=== PATIENT | female | born 1950 | race Caucasian/White ===

== ENCOUNTER 2021-09-27 12:43 | Outpatient (REF) | payer MEDICARE, SELFPAY ==
--- NOTE | ~2021-09-27 | MM_ITS ---
EXAMINATION: MM SCREENING DIGITAL BREAST TOMOSYNTHESIS, BILATERAL CLINICAL INFORMATION: Screening. Asymptomatic. The lifetime risk of breast cancer based on the Tyrer-Cuzick Model is 3%. COMPARISON: Mammography: 02/20/2019, 02/15/2018, 05/09/2016 TECHNIQUE: Digital breast tomosynthesis is performed in both the craniocaudal and mediolateral oblique views along with computer-aided detection (CAD). Synthesized 2D images are generated from the tomosynthesis. FINDINGS: There are scattered areas of fibroglandular density (ACR BI-RADS breast composition Category b). There are no significant masses, abnormal calcifications, or other abnormalities. There is no developing density or architectural abnormality. The axilla and skin contours are unremarkable. No significant changes. MM/MM tomosynthesis screening BI IMPRESSION: No mammographic evidence of malignancy. ASSESSMENT: BI-RADS 1: Negative RECOMMENDATION: Routine annual mammography screening. This patient's information was entered into a reminder system with a target due date for their next mammogram.
--- NOTE | ~2021-09-27 | MM_ITS ---
EXAMINATION: BONE DENSITOMETRY CLINICAL INDICATION: Menopause. COMPARISON: Baseline BD dated 04/22/2010. TECHNIQUE: Using a SCREEMO DXA System (software version: 13.1) manufactured by [employer], dual-energy x-ray absorptiometry was performed of the lumbar spine and left hip. The images are of good technical quality. Summary results are attached. FINDINGS: AP SPINE L1-L3 (excluding L4): The data of L1-L4 has been changed to exclude the L4 vertebral body, because degenerative changes at this level may cause overestimation of lumbar spine density. Current: BMD 0.864 g/cm2, Z-score -0.6, T-score -2.5, osteoporosis, 18.1% decrease from baseline (<5% change is not significant). Baseline: BMD 1.055 g/cm2. LEFT FEMUR, NECK: Current: BMD 0.725 g/cm2, Z-score -0.4, T-score -2.2, osteopenia. Baseline: BMD 0.957 g/cm2. LEFT FEMUR, TOTAL: Current: BMD 0.715 g/cm2, Z-score -0.7, T-score -2.3, osteopenia, 22.0% decrease from baseline (<5% change is not significant). Baseline: BMD 0.917 g/cm2. IDENTIFIED RISK FACTORS: Osteoporosis, renal, tobacco use (current smoker), low body weight, thiazide, menopause. HISTORY OF FRACTURE: None listed. MEDICATIONS: Calcium supplements or multivitamin, vitamin D. MM/XR DEXA axial skeleton IMPRESSION: 1. DIAGNOSIS: Osteoporosis based on the lowest T-score value of -2.5 in the lumbar spine applying World Health Organization criteria. 2. 10-YEAR FRACTURE RISK PREDICTION, FRAX: According to the guidelines, FRAX calculation should only be performed on patients in the osteopenia bone density category. Therefore, FRAX was not performed on this patient. 3. Treatment Recommendations: NOF guidelines recommend consideration for treatment in postmenopausal women and men age 50 and older presenting with the following: -A hip or vertebral (clinical or morphometric) fracture. -T-score less than or equal to -2.5 at the femoral neck or spine after appropriate evaluation to exclude secondary causes. -Low bone mass at the hip or spine and a 10-year fracture probability by FRAX of greater than or equal to 3% for hip fracture or greater than or equal to 20% for major osteoporotic fracture based on the [place] adapted WHO algorithm. 4. Other Recommendations: All treatment decisions require clinical judgment and consideration of individual patient factors, including patient preferences, comorbidities, previous drug use, risk factors not captured in the FRAX model (e.g. frailty, falls, vitamin D deficiency, increased bone turnover, interval significant decline in bone density) and possible under or overestimation of fracture risk by FRAX. Additional medical evaluation for secondary cause of low bone mineral density may be appropriate. FUTURE SCAN RECOMMENDATION: People with diagnosed cases of osteoporosis or at high risk for fracture should have regular bone mineral density tests. For patients eligible for Medicare, routine testing is allowed once every 2 years. The testing frequency can be increased to one year for patients who have rapidly progressing disease, those who are receiving or discontinuing medical therapy to restore bone mass, or have additional risk factors.
== END 2021-09-27 12:44 | disposition home or self-care (01) ==
LOC: HO.MAMMO 12:43
PROVIDERS: PCP Family Medicine; Visit Provider Family Medicine
DX: Z12.31 Encounter for screening mammogram for malignant neoplasm of breast (principal); Z13.820 Encounter for screening for osteoporosis; F17.200 Nicotine dependence, unspecified, uncomplicated; Z78.0 Asymptomatic menopausal state; Z79.899 Other long term (current) drug therapy
CPT/HCPCS: 77063; 77067; 77080

== ENCOUNTER 2023-06-06 12:18 | Outpatient (REF) | payer OTHER, SELFPAY ==
[2023-06-06 13:11] LABS: MANUAL DIFF FLAG NO
[2023-06-06 13:23] LABS: Basophils Absolute Auto 0.1 X10*3/uL (0.0-0.2); Basophils Percent Auto 1.1 % (0-2); Eosinophils Absolute Auto 0.1 X10*3/uL (0.0-0.4); Eosinophils Percent Auto 2.1 % (0-4); Hematocrit 37.9 % (37.0-47.0); Hemoglobin 12.4 g/dl (12.0-16.0); Imm Gran Abs Auto 0.01 X10*3/uL (0.00-0.03); Imm Gran Pct Auto 0.2 % (0.0-0.4); Lymphocytes Absolute Auto 2.6 X10*3/uL (1.2-4.9); Lymphocytes Percent Auto 40.5 % (20-40); Mean Corpuscular HGB Conc 32.7 g/dl (31.0-35.0); Mean Corpuscular Hemoglobin 30.4 pg (27.0-33.0); Mean Corpuscular Volume 92.9 fL (80.0-98.0); Mean Platelet Volume 9.7 fL (9.4-12.3); Monocytes Absolute Auto 0.4 X10*3/uL (0.1-1.2); Monocytes Percent Auto 6.6 % (2-11); Neutrophils Absolute Auto 3.1 x10*3/uL (2.0-8.3); Neutrophils Percent Auto 49.5 % (45-73); Platelet Count 502 X10*3/uL (160-400); Red Blood Count 4.08 X10*6/uL (4.20-5.50); Red Cell Distribution Width 14.6 % (11.0-16.0); White Blood Count 6.3 X10*3/uL (4.8-10.8)
[2023-06-06 13:33] LABS: Estimated Average Glucose 120 mg/dL; Hemoglobin A1c % 5.8 % (<6.0)
[2023-06-06 13:52] LABS: Cholesterol 289 mg/dL (<200); HDL Cholesterol 53 mg/dL (>40); LDL Cholesterol Calculated 216 mg/dL (<100); Triglycerides 102 mg/dL (<150)
[2023-06-06 14:00] LABS: Alanine Aminotransferase 7 U/L (0-31); Albumin Level 4.1 g/dL (3.5-5.0); Alkaline Phosphatase 67 U/L (39-117); Anion Gap 9 (12-20); Aspartate Amino Transferase 14 U/L (5-31); Bilirubin Total 0.2 mg/dL (0.0-1.0); Blood Urea Nitrogen 16 mg/dL (9-16); C Reactive Protein 0.35 mg/dL (< or = 0.50); Calcium 10.5 mg/dL (8.4-10.2); Carbon Dioxide 29 mmol/L (22-29); Chloride 107 mmol/L (96-108); Estimated Glomerular Filt Rate 59; Glucose Random 84 mg/dL (60-115); Potassium 4.1 mmol/L (3.3-5.1); Sodium 141 mmol/L (135-145)
[2023-06-06 14:03] LABS: Reflex LDLD? No
[2023-06-06 14:09] LABS: Erythrocyte Sedimentation Rate 11 MM/HR (0-20)
[2023-06-06 14:14] LABS: TSH reflex Free T4 0.33 uIU/mL (0.32-4.0)
== END 2023-06-06 12:19 | disposition home or self-care (01) ==
LOC: HO.HHCL 12:18
PROVIDERS: Visit Provider Family Medicine
DX: R63.4 Abnormal weight loss (principal); E78.5 Hyperlipidemia, unspecified; Z13.1 Encounter for screening for diabetes mellitus
CPT/HCPCS: 36415; 80053; 80061; 83036; 84443; 85025; 85652; 86140

== ENCOUNTER 2023-10-23 09:58 | Outpatient (REF) | payer OTHER, SELFPAY ==
[2023-10-23 11:33] LABS: MANUAL DIFF FLAG NO
[2023-10-23 11:41] LABS: Basophils Absolute Auto 0.1 X10*3/uL (0.0-0.2); Basophils Percent Auto 1.3 % (0-2); Eosinophils Absolute Auto 0.1 X10*3/uL (0.0-0.4); Eosinophils Percent Auto 2.6 % (0-4); Hematocrit 37.4 % (37.0-47.0); Hemoglobin 12.4 g/dl (12.0-16.0); Imm Gran Abs Auto 0.01 X10*3/uL (0.00-0.03); Imm Gran Pct Auto 0.2 % (0.0-0.4); Lymphocytes Absolute Auto 2.3 X10*3/uL (1.2-4.9); Lymphocytes Percent Auto 41.4 % (20-40); Mean Corpuscular HGB Conc 33.2 g/dl (31.0-35.0); Mean Corpuscular Volume 90.3 fL (80.0-98.0); Mean Platelet Volume 9.7 fL (9.4-12.3); Monocytes Absolute Auto 0.3 X10*3/uL (0.1-1.2); Monocytes Percent Auto 6.3 % (2-11); Neutrophils Absolute Auto 2.6 x10*3/uL (2.0-8.3); Neutrophils Percent Auto 48.2 % (45-73); Platelet Count 386 X10*3/uL (160-400); Red Blood Count 4.14 X10*6/uL (4.20-5.50); Red Cell Distribution Width 15.7 % (11.0-16.0); White Blood Count 5.4 X10*3/uL (4.8-10.8)
[2023-10-23 12:14] LABS: Alanine Aminotransferase 11 U/L (0-31); Albumin Level 4.2 g/dL (3.5-5.0); Alkaline Phosphatase 73 U/L (39-117); Anion Gap 12 (12-20); Aspartate Amino Transferase 15 U/L (5-31); Bilirubin Total 0.2 mg/dL (0.0-1.0); Blood Urea Nitrogen 14 mg/dL (9-16); C Reactive Protein 0.27 mg/dL (< or = 0.50); Calcium 10.5 mg/dL (8.4-10.2); Carbon Dioxide 28 mmol/L (22-29); Chloride 108 mmol/L (96-108); Cholesterol 190 mg/dL (<200); Estimated Glomerular Filt Rate > 60; Glucose Random 86 mg/dL (60-115); HDL Cholesterol 65 mg/dL (>40); LDL Cholesterol Calculated 113 mg/dL (<100); Potassium 3.9 mmol/L (3.3-5.1); Sodium 144 mmol/L (135-145); Triglycerides 62 mg/dL (<150)
[2023-10-23 12:26] LABS: Erythrocyte Sedimentation Rate 13 MM/HR (0-20)
[2023-10-23 12:32] LABS: TSH reflex Free T4 0.27 uIU/mL (0.32-4.0)
[2023-10-23 12:38] LABS: HBS Num1 0.23 mIU/mL (0-7.99); HBc Num1 0.08 S/CO (0.00-0.79); HBsAGNum1 0.32 S/CO (0.00-0.99); HIV AB/AG Nonreactive (Nonreactive); HIV Num 1 0.06 S/CO (0.00-0.99); Hepatitis B Core Antibody Nonreactive (Nonreactive); Hepatitis B Surface Antigen Negative (Negative); ~HepC Num1 0.06 S/CO (0.00-0.79); ~Hepatitis B Surface Antibody NONREACTIVE (Nonreactive); ~Hepatitis C Antibody Nonreactive (Nonreactive)
[2023-10-23 12:42] LABS: Syphilis Screen Nonreactive (Nonreactive)
[2023-10-23 12:51] LABS: Reflex LDLD? No
[2023-10-23 13:29] LABS: Free T4 (Free Thyroxine) 1.01 ng/dL (0.71-1.85)
[2023-10-24 08:26] LABS: Hepatitis A Antibody IgG Nonreactive (Nonreactive); ~Hepatitis A Antibody IgG 0.22 S/CO (0.00-0.99)
[2023-10-24 19:33] LABS: Anti Nuclear Antibody Screen NEGATIVE (NEGATIVE)
[2023-10-25 21:59] LABS: TS Negative Control Passed; TS Panel A 0; TS Panel B 1; TS Positive Control Passed; TSpotTB Negative (Negative)
[2023-10-26 13:43] LABS: Myeloperoxidase Antibody <1.0 AI; Proteinase 3 PR3 Antibodies <1.0 AI
== END 2023-10-23 09:59 | disposition home or self-care (01) ==
LOC: HO.HHCL 09:58
PROVIDERS: Visit Provider Family Medicine
DX: Z01.84 Encounter for antibody response examination (principal); Z11.1 Encounter for screening for respiratory tuberculosis; I10 Essential (primary) hypertension; R61 Generalized hyperhidrosis; D86.9 Sarcoidosis, unspecified; D75.839 Thrombocytosis, unspecified; E78.5 Hyperlipidemia, unspecified
CPT/HCPCS: 36415; 80053; 80061; 84439; 84443; 85025; 85652; 86021; 86038; 86140; 86481; 86704; 86706; 86708; 86780; 86803; 87340; 87389

== ENCOUNTER 2023-10-26 13:48 | Outpatient (REF) | payer OTHER, SELFPAY ==
--- NOTE | ~2023-10-26 | MM_ITS ---
EXAMINATION: BONE DENSITOMETRY CLINICAL INDICATION: Osteoporosis, on alendronate. COMPARISON: Previous BD dated 09/27/2021 and baseline BD dated 04/22/2010. TECHNIQUE: Using a Elevate DXA System (software version: 13.1) manufactured by [employer], dual-energy x-ray absorptiometry was performed of the lumbar spine and left hip. The images are of good technical quality. Summary results are attached. FINDINGS: LEFT FEMUR, NECK: Current: BMD 0.677 g/cm2, Z-score -0.8, T-score -2.6, osteoporosis. Prior: BMD 0.725 g/cm2. Baseline: BMD 0.957 g/cm2. LEFT FEMUR, TOTAL: Current: BMD 0.616 g/cm2, Z-score -1.5, T-score -3.1, osteoporosis, 13.8% decrease from previous, 32.8% decrease from baseline (<5% change is not significant). Prior: BMD 0.715 g/cm2. Baseline: BMD 0.917 g/cm2. AP SPINE L1-L4: Current: BMD 0.899 g/cm2, Z-score -0.6, T-score -2.3, osteopenia, 4.3% decrease from previous, 14.4% decrease from baseline (<5% change is not significant). Prior: BMD 0.939 g/cm2. Baseline: BMD 1.050 g/cm2. IDENTIFIED RISK FACTORS: Menopause, renal, thiazide, tobacco use (current smoker). HISTORY OF FRACTURE: None listed. MEDICATIONS: Calcium or multivitamin. Vitamin D. MM/XR DEXA axial skeleton IMPRESSION: 1. DIAGNOSIS: Osteoporosis based on the lowest T-score value of -3.1 in the total femur applying World Health Organization criteria. 2. 10-YEAR FRACTURE RISK PREDICTION, FRAX: According to the guidelines, FRAX calculation should only be performed on patients in the osteopenia bone density category. Therefore, FRAX was not performed on this patient. 3. Treatment Recommendations: NOF guidelines recommend consideration for treatment in postmenopausal women and men age 50 and older presenting with the following: -A hip or vertebral (clinical or morphometric) fracture. -T-score less than or equal to -2.5 at the femoral neck or spine after appropriate evaluation to exclude secondary causes. -Low bone mass at the hip or spine and a 10-year fracture probability by FRAX of greater than or equal to 3% for hip fracture or greater than or equal to 20% for major osteoporotic fracture based on the [place] adapted WHO algorithm. 4. Other Recommendations: All treatment decisions require clinical judgment and consideration of individual patient factors, including patient preferences, comorbidities, previous drug use, risk factors not captured in the FRAX model (e.g. frailty, falls, vitamin D deficiency, increased bone turnover, interval significant decline in bone density) and possible under or overestimation of fracture risk by FRAX. Additional medical evaluation for secondary cause of low bone mineral density may be appropriate. FUTURE SCAN RECOMMENDATION: People with diagnosed cases of osteoporosis or at high risk for fracture should have regular bone mineral density tests. For patients eligible for Medicare, routine testing is allowed once every 2 years. The testing frequency can be increased to one year for patients who have rapidly progressing disease, those who are receiving or discontinuing medical therapy to restore bone mass, or have additional risk factors.
== END 2023-10-26 13:49 | disposition home or self-care (01) ==
LOC: HO.MAMMO 13:48
PROVIDERS: PCP Family Medicine; Visit Provider Family Medicine
DX: Z13.820 Encounter for screening for osteoporosis (principal); M81.0 Age-related osteoporosis without current pathological fracture; Z78.0 Asymptomatic menopausal state
CPT/HCPCS: 77080

== ENCOUNTER 2023-11-02 14:47 | Outpatient (REF) | payer OTHER, SELFPAY | END 2023-11-02 14:48 | disposition home or self-care (01) | LOC: HO.MAMMO 14:47 | PROVIDERS: PCP Family Medicine; Visit Provider Family Medicine | DX: Z12.31 Encounter for screening mammogram for malignant neoplasm of breast (principal) | CPT/HCPCS: 77063; 77067 ==

== ENCOUNTER → 2023-11-02 15:15 | Outpatient (BNV) | payer OTHER, SELFPAY | PROVIDERS: PCP Family Medicine; Visit Provider Radiology Diagnostic Radiology | DX: Z12.31 Encounter for screening mammogram for malignant neoplasm of breast (principal) | CPT/HCPCS: 77063; 77067 ==

== ENCOUNTER 2023-12-14 08:49 | Outpatient (AMB) | payer OTHER, SELFPAY ==
--- NOTE | 2023-12-14 08:57 | MHC.OFFVIS ---
Vital Signs 12/14/23 08:59 Height 5 ft 5 in Weight 140 lb 3.424 oz BMI 23.3 BP 130/70 Blood Pressure Location Rt brachial Position Sitting Pulse 80 Pulse Source Pulse Oximeter Pulse Oximetry (%) 99 Oxygen Delivery Method Room Air Intake Visit Reasons: Sarcoidosis Intake Note: New patient, externally referred by Dr. Butler at [facility], presents today for evaluation of Sarcoidosis. Inspector Line Required: No Accompanied by: Self / Same As Patient Allergies Penicillins Allergy (Severe, Verified 12/14/23 09:02) SWELLING strawberry [[place]] Allergy (Intermediate, Verified 12/14/23 09:02) HIVES HPI Comments Details: Ms. Mcduffie 73-year-old female, was referred by PCP for evaluation for Sarcoidosis due to mention of a remote history. Patient denies ever seeing a Plant And Maintenance Technician or knowingly being treated for sarcoidosis of the lungs. --had recent CT Scan last month (not available for my review; per referral notes 09/2022 CT scan did not show hilar Lymphadenopathy. --has COPD, exacerbation resolve with prednisone; last seen Practice Performance Manager 09/2022, needs an appointment; smoker since 14 years old, trying to quit - 3 months now --no pleuritis or pericarditis --rash to left knee, on back - thinks she is getting eczema; uses cream and is resolving --join pain - gets knee joint injections, Ortho says bone on bone ; last for 3 months, difficulty with stairs, uses a rolling walker --former crack/cocaine user --denies drop foot, skin lumps, --denies other common symptoms of Sarcoidosis Lung or chest symptoms:?Chest pain, dry cough, and coughing up blood Skin symptoms:?Raised red bumps, rashes, lupus pernio, or erythema nodosum, which are painful red lumps on the front of the legs Eye symptoms:?Eye irritation, dryness, blurred vision, light sensitivity, inflammation, pain, or burning General symptoms:?Fatigue, fever, weight loss, swollen lymph nodes, night sweats, depression, or a feeling of illness or discomfort Nervous system symptoms:?Headache, seizures, dizziness, numbness, tingling, or heart palpitations --has heart burn, denies abdominal pain and cramping and diarrhea - due for colonoscopy. --livedo reticualris to knees, mid to lower back centrally --does not appear sick on observation - no need for Amyloid A, KL-6, soluble interleukin-2 receptor (Teri-2R) --PMH asthma, COPD, HTN, CKD, Knee OA and Osteoporosis PFSH Medical History (Updated 01/03/24 @ 15:21 by Arleen Ware [facility]) Sensorineural hearing loss, bilateral Leg cramp Paresthesia of skin Other postherpetic nervous system involvement Heavy smoker (more than 20 cigarettes per day) Lung nodules Osteoporosis Allergic rhinitis, unspecified Nicotine dependence, unspecified, uncomplicated Vitamin D deficiency, unspecified Unspecified mood [affective] disorder Epilepsy, unspecified, not intractable, without status epilepticus Osteoarthritis of knee, unspecified Acute migraine Prediabetes Essential (primary) hypertension Dyslipidemia Chronic kidney disease Asthma with COPD Hx of sarcoidosis COPD (chronic obstructive pulmonary disease) Surgical History (Updated 12/14/23 @ 09:03 by Ekta Carty MA) History of section Family History (Updated 12/14/23 @ 09:04 by Ekta Carty MA) Mother Heart disease Maternal Uncle Heart disease Sister Diabetes mellitus, type II Social History (Updated 12/14/23 @ 09:05 by Ekta Carty MA) Alcohol intake: former Patient Tobacco Use Status: Former Tobacco user Substance Use Type: Marijuana Review of Systems Const All systems reviewed & are unremarkable except as noted in HPI and below Physical Exam Vital Signs: Last Vital Signs Pulse 80 12/14/23 08:59 BP 130/70 12/14/23 08:59 Pulse Ox 99 12/14/23 08:59 Oxygen Delivery Method Room Air 12/14/23 08:59 BMI result Body Mass Index 23.3 Vital signs reviewed. Constitutional: Non-toxic appearing. No acute distress. Well-developed and well-nourished. HEENT: Normocephalic and atraumatic. External auditory canals without erythema or edema bilaterally. Dry mucous membranes. Skin: Warm and dry. No rashes or lesions noted. Neck: Full and painless range of motion. No cervical lymphadenopathy. Cardio: Regular rate and rhythm. No murmurs, gallops, or rubs. No lower extremity edema. No JVD. Pulmonary: No respiratory distress. No accessory muscle usage. decreased in the based Gastrointestinal: Soft, nontender, and nondistended in all 4 quadrants. Normoactive bowel sounds in all 4 quadrants. Genitourinary: No CVA tenderness. Musculoskeletal: Normal range of motion in joints throughout the body. No deformity or other signs of injury. Uses a walker Neuro: Alert and oriented x4. Cranial nerves 2-12 grossly intact. No focal deficits appreciated. Results Reviewed Results Reviewed: Per for referral 1. 09/27/2022 CT scan shows Lung-RADS 2 stable nodules 2. Post herpetic neuralgia gabapentin 600 mg at bedtime 3 labs 10/23/2023 sed rate 13, CRP 0.27, CBC grossly normal, lipids grossly normal, CMP grossly normal-calcium 10.5 up, creatinine 0.83, TSH 0.27 down, Did not see results for MADAI and ANCA Assessment & Plan Assessment & Plan (1) Hx of sarcoidosis: Code(s): Z86.2 - Personal history of diseases of the blood and blood-forming organs and certain disorders involving the immune mechanism Category: Medical (2) COPD (chronic obstructive pulmonary disease): Code(s): J44.9 - Chronic obstructive pulmonary disease, unspecified Category: Medical Qualifiers: COPD type: unspecified COPD Qualified Code(s): J44.9 - Chronic obstructive pulmonary disease, unspecified (3) Heavy smoker (more than 20 cigarettes per day): Code(s): F17.210 - Nicotine dependence, cigarettes, uncomplicated Category: Social Hx (4) Vitamin D deficiency, unspecified: Code(s): E55.9 - Vitamin D deficiency, unspecified Category: Medical Plan #Presumed History of Sarcoid: The patient shares that she was told she had sarcoidosis years ago but she does not remember being treated for it. On PE I did not see a clinical presentation for sarcoidosis and she denies much of the symptoms as outlined in the HPI. She does have longstanding COPD and asthma . She also has nodules, LUNG-RAD-2, monitored annually. She does not clinically present as having sarcoid. There are respiratory challenges that she will have that is likely linked to her COPD and asthma so I suspect episodes of shortness of breath, wheezing is attributed to that. Per referral, the most recent CT scan (09/2022) did not identify hilar lymphadenopathy commonly seen in the context of lung sarcoid. The patient denies any increased respiratory burden that is outside of her regular COPD exacerbations. She has not seen a electronics detail draftsperson since 2023 and is scheduled to have an updated visit. Per labs on referral notes her calcium is mildly elevated at 10.5: While elevated calcium can be seen in the context of sarcoid, I doubt this is the reason. I will obtain room panel to include Gregorio and vitamin-D levels, for further evaluation. She also has a history of vitamin-D deficiency which usually the opposite is seen in sarcoid. Follow-up as needed if lab work is remarkable I spent 35 minutes reviewing history, evaluating patient and documenting Orders: Orders Comprehensive Met. Panel 12/18/23 J44.9 - Chronic obstructive pulmonary disease, unspecified, Z86.2 - Personal history of diseases of the blood and blood-forming organs and certain disorders involving the immune mechanism C Reactive Protein 12/18/23 J44.9 - Chronic obstructive pulmonary disease, unspecified, Z86.2 - Personal history of diseases of the blood and blood-forming organs and certain disorders involving the immune mechanism Immunoglobulins,IgG IgA IgM 12/18/23 J44.9 - Chronic obstructive pulmonary disease, unspecified, Z86.2 - Personal history of diseases of the blood and blood-forming organs and certain disorders involving the immune mechanism Immunofixation Pnl, Serum 12/18/23 J44.9 - Chronic obstructive pulmonary disease, unspecified, Z86.2 - Personal history of diseases of the blood and blood-forming organs and certain disorders involving the immune mechanism Anti Extractable Nuclear Ag 12/18/23 J44.9 - Chronic obstructive pulmonary disease, unspecified, Z86.2 - Personal history of diseases of the blood and blood-forming organs and certain disorders involving the immune mechanism Lysozyme, Serum 12/18/23 J44.9 - Chronic obstructive pulmonary disease, unspecified, Z86.2 - Personal history of diseases of the blood and blood-forming organs and certain disorders involving the immune mechanism Angiotensin Converting Enzyme 12/18/23 J44.9 - Chronic obstructive pulmonary disease, unspecified, Z86.2 - Personal history of diseases of the blood and blood-forming organs and certain disorders involving the immune mechanism Complete Blood Count Auto Diff 12/18/23 J44.9 - Chronic obstructive pulmonary disease, unspecified, Z86.2 - Personal history of diseases of the blood and blood-forming organs and certain disorders involving the immune mechanism Erythrocyte Sedimentation Rate 12/18/23 J44.9 - Chronic obstructive pulmonary disease, unspecified, Z86.2 - Personal history of diseases of the blood and blood-forming organs and certain disorders involving the immune mechanism Vitamin D 25-OH (D2 and D3) 12/18/23 J44.9 - Chronic obstructive pulmonary disease, unspecified, Z86.2 - Personal history of diseases of the blood and blood-forming organs and certain disorders involving the immune mechanism Protein Electrophoresis, Serum 12/18/23 J44.9 - Chronic obstructive pulmonary disease, unspecified, Z86.2 - Personal history of diseases of the blood and blood-forming organs and certain disorders involving the immune mechanism Sjogren's Antibodies 12/18/23 J44.9 - Chronic obstructive pulmonary disease, unspecified, Z86.2 - Personal history of diseases of the blood and blood-forming organs and certain disorders involving the immune mechanism T Spot TB 12/18/23 J44.9 - Chronic obstructive pulmonary disease, unspecified, Z86.2 - Personal history of diseases of the blood and blood-forming organs and certain disorders involving the immune mechanism Coding Level of Care Code New Pt Level 4 (40579) Diagnoses Hx of sarcoidosis Z86.2 Chronic obstructive pulmonary disease, unspecified COPD type J44.9 COPD type: unspecified COPD Heavy smoker (more than 20 cigarettes per day) F17.210 Vitamin D deficiency, unspecified E55.9
[2023-12-14 08:59] VITALS: BP 130/70; PULSE 80; O2SAT 99; BMI 23.3
== END 2023-12-14 09:54 | disposition home or self-care (01) ==
PROVIDERS: PCP Family Medicine; Visit Provider Nurse Practitioner Family
DX: Z86.2 Personal history of diseases of the blood and blood-forming organs and certain disorders involving the immune mechanism (principal); J44.9 Chronic obstructive pulmonary disease, unspecified; F17.210 Nicotine dependence, cigarettes, uncomplicated; E55.9 Vitamin D deficiency, unspecified
CPT/HCPCS: 99204

== ENCOUNTER → 2023-12-14 08:49 | Outpatient (BNVA) | payer OTHER, SELFPAY | PROVIDERS: PCP Family Medicine; Visit Provider Nurse Practitioner Family | DX: J44.9 Chronic obstructive pulmonary disease, unspecified (principal); E55.9 Vitamin D deficiency, unspecified; F17.210 Nicotine dependence, cigarettes, uncomplicated; Z86.2 Personal history of diseases of the blood and blood-forming organs and certain disorders involving the immune mechanism | CPT/HCPCS: 99202 ==

== ENCOUNTER 2023-12-18 10:34 | Outpatient (REF) | payer OTHER, SELFPAY ==
[2023-12-18 12:11] LABS: MANUAL DIFF FLAG NO
[2023-12-18 12:22] LABS: Basophils Percent Auto 0.5 % (0-2); Eosinophils Absolute Auto 0.2 X10*3/uL (0.0-0.4); Hematocrit 36.9 % (37.0-47.0); Hemoglobin 12.7 g/dl (12.0-16.0); Imm Gran Abs Auto 0.04 X10*3/uL (0.00-0.03); Imm Gran Pct Auto 0.5 % (0.0-0.4); Lymphocytes Absolute Auto 2.9 X10*3/uL (1.2-4.9); Lymphocytes Percent Auto 33.7 % (20-40); Mean Corpuscular HGB Conc 34.4 g/dl (31.0-35.0); Mean Corpuscular Hemoglobin 30.4 pg (27.0-33.0); Mean Corpuscular Volume 88.3 fL (80.0-98.0); Mean Platelet Volume 9.8 fL (9.4-12.3); Monocytes Absolute Auto 0.6 X10*3/uL (0.1-1.2); Monocytes Percent Auto 6.5 % (2-11); Neutrophils Absolute Auto 4.9 x10*3/uL (2.0-8.3); Neutrophils Percent Auto 56.8 % (45-73); Platelet Count 344 X10*3/uL (160-400); Red Blood Count 4.18 X10*6/uL (4.20-5.50); Red Cell Distribution Width 14.2 % (11.0-16.0); White Blood Count 8.5 X10*3/uL (4.8-10.8)
[2023-12-18 12:57] LABS: Erythrocyte Sedimentation Rate 10 MM/HR (0-20)
[2023-12-18 13:05] LABS: Alanine Aminotransferase 10 U/L (0-31); Alkaline Phosphatase 62 U/L (39-117); Anion Gap 12 (12-20); Aspartate Amino Transferase 12 U/L (5-31); Bilirubin Total 0.5 mg/dL (0.0-1.0); Blood Urea Nitrogen 18 mg/dL (9-16); C Reactive Protein 0.82 mg/dL (< or = 0.50); Calcium 9.9 mg/dL (8.4-10.2); Carbon Dioxide 27 mmol/L (22-29); Chloride 107 mmol/L (96-108); Estimated Glomerular Filt Rate 50; Glucose Random 90 mg/dL (60-115); Potassium 3.5 mmol/L (3.3-5.1); Sodium 142 mmol/L (135-145); Total Protein 6.5 g/dL (6.5-8.0)
[2023-12-19 20:09] LABS: Antibody to SS-A Antigen <1.0 NEG AI (<1.0 NEG); Antibody to SS-B Antigen <1.0 NEG AI (<1.0 NEG); SM/Ribonucleoprotein Ab <1.0 NEG AI (<1.0 NEG); Smith Protein <1.0 NEG AI (<1.0 NEG)
[2023-12-20 20:03] LABS: Prot Elec - Albumin 4.2 g/dL (3.8-4.8); Prot Elec - Alpha1 0.3 g/dL (0.2-0.3); Prot Elec - Alpha2 0.7 g/dL (0.5-0.9); Prot Elec - Beta 1 0.4 g/dL (0.4-0.6); Prot Elec - Beta 2 0.3 g/dL (0.2-0.5); Prot Elec - Gamma 0.6 g/dL (0.8-1.7); Prot Elec - Total Protein 6.5 g/dL (6.1-8.1)
[2023-12-20 22:33] LABS: TS Negative Control Passed; TS Panel A 1; TS Panel B 0; TS Positive Control Passed; TSpotTB Negative (Negative)
[2023-12-21 10:29] LABS: IgA 247 mg/dL (70-320); IgG 652 mg/dL (600-1540); IgM 87 mg/dL (50-300)
[2023-12-23 16:48] LABS: Vitamin D 25-OH, D2 <4 ng/mL; Vitamin D 25-OH, D3 53 ng/mL; Vitamin D 25-OH, Total 53 ng/mL (30-100)
[2023-12-25 06:24] LABS: Angiotensin Converting Enzyme 11 U/L (9-67)
[2023-12-25 20:24] LABS: Lysozyme, Serum 13.1 mcg/mL (5.0-11.0)
== END 2023-12-18 10:35 | disposition home or self-care (01) ==
LOC: HO.HHCL 10:34
PROVIDERS: Visit Provider Nurse Practitioner Family
DX: J44.9 Chronic obstructive pulmonary disease, unspecified (principal); Z86.2 Personal history of diseases of the blood and blood-forming organs and certain disorders involving the immune mechanism
CPT/HCPCS: 36415; 80053; 82164; 82306; 82784; 84165; 85025; 85549; 85652; 86140; 86235; 86334; 86481

== ENCOUNTER 2024-08-18 12:36 | Outpatient (REF) | payer OTHER, SELFPAY ==
--- OUTSIDE RECORDS SUMMARY | 2024-08-18 13:55 | XMS_ITS | Encounter Summary ---
Author Organization [employer] Address [address] [place] [address] Care Team Providers Care Simulation Educator Name Role Phone Jackie Butler MD Primary Care Provider [phone] Encounter Details Date Type Department Care Team (Latest Contact Info) Description 08/18/2024 11:15 AM EST Office Visit [facility] [address] [place] [address] [phone] Jackie Butler MD [address], [place] [phone] Asthma with COPD (CMS/HCC) (Primary Dx); Lung nodules; Primary hypertension; Osteoporosis without current pathological fracture, unspecified osteoporosis type; Sarcoidosis; Tobacco dependence; Smoking greater than 20 pack years; Sensorineural hearing loss (SNHL) of both ears; Moderate major depression (CMS/HCC); Allergic rhinitis, unspecified seasonality, unspecified trigger; Primary osteoarthritis of both knees; Prediabetes; Dyslipidemia; Encounter for immunization Social History Tobacco Use Types Packs/Day Years Used Date Smoking Tobacco: Every Day Cigarettes Passive Smoke Exposure: Current Smokeless Tobacco: Never Alcohol Use Standard Drinks/Week Comments Never 0 (1 standard drink = 0.6 oz pur e alcohol) Alcohol Answer Date Recorded Frequency of Alcohol Consumption Not on file 01/14/2024 Average Number of Drinks Not on file 024 Frequency of Binge Drinking Not on file 07/2023 Score 0 01/14/2024 Depression Answer Date Recorded Patient Health Questionnaire-9 Score 8 08/18/2024 Patient Health Questionnaire-9 Score 8 08/18/2024 Last PHQ-9: Questionnaire Data Not on file 0 08/18/2024 Housing Stability Answer Date Recorded What is your housing situation today? I have manjinder payne 08/18/[address] you li ve. Do you have problems with any of the following? None of the above 08/18/2024 Food Insecurity Answer Date Recorded Within the past 12 months, y ou worried that your food would run out before you got money to buy more: Never True 08/18/2024 Within the past 12 months,th e food you bought just didn't last and you didn't have enough money to get more: Never True 09/2024 Transportation Answer Date Recorded In the past 12 months, has l ack of transportation kept you from medical appts, meetings, work or from getting things needed for daily living? No 08/18/2024 Utilities Answer Date Recorded In the past 12 months, has t he electric, gas, oil or water company threatened to shut off services in your home? No 08/18/2024 Depression Answer Date Recorded Patient Health Questionnaire-2 Score 2 08/18/2024 Internet Access Answer Date Recorded Internet Access Q1 Yes 08/18/2024 Internet Access Q2 Not on file 08/18/2024 Comments Unknown Sex and Gender Information Value Date Recorded Sex Assigned at Female 05/15/2022 10:17 AM EDT Legal Sex Female 10:17 AM EDT Gender Identity Female 05/15/2022 10:17 AM EDT Sexual Orientation Straight 05/15/2022 10 :17 AM EDT documented as of this encounter Last Filed Vital Signs Vital Sign Reading Time Taken Comments Blood Pressure 105/64 08/18/2024 11:38 AM EST Pulse 93 08/18/2024 11:38 AM EST Temperature 36.2 ??C (97.1 ??F) 08/18/2024 11:[address] Respiratory Rate 15 08/18/2024 11:38 AM EST Oxygen Saturation 98% 08/18/2024 11:38 AM EST Inhaled Oxygen Concentration - - Weight 59.6 kg (131 lb 6.4 oz) 08/18/2024 11:38 AM EST Height - - Body Mass Index 22.43 04/14/2024 11:15 AM EDT documented in this encounter Miscellaneous Notes * Assessment & Plan Note - Antolin Carmona - 08/18/2024 12:18 PM ESTAssociated Problem(s): Tobacco dependence Continue working on smoking cessation Continue lung cancer screening * Assessment & Plan Note - Antolin Carmona - 08/18/2024 12:17 PM ESTAssociated Problem(s): Smoking greater than 20 pack years - pt reports being three weeks smoke free - low dose lung cancer screening CT in November 2023 Lung RADS 2 at [facility] - repeat CT in 1 year * Assessment & Plan Note - Antolin Carmona - 08/18/2024 12:17 PM ESTAssociated Problem(s): Sensorineural hearing loss (SNHL) of both ears - seen by case management manager and recommended to use hearing aids * Assessment & Plan Note - Antolin Carmona - 08/18/2024 12:17 PM ESTAssociated Problem(s): Moderate major depression (CMS/HCC) - Hx Diagnosis of bipolar disorder. - Previous medication: Depakote, but patient discontinued (unclear when it was started and if it was for Hx seizure disorder, no seizure > 15 years -previously seen by [facility] clinician -Patient seeking in-person counseling * Assessment & Plan Note - Antolin Carmona - 08/18/2024 12:16 PM ESTAssociated Problem(s): Dyslipidemia Current medication: Rosuvastatin 40 mg at bedtime Last lipid profile: 06/06/23 TC 289; TG 102; HDL 52; LDL 216 Encourage her to improve adherence to medication and lifestyle modification May need to change to Atorvastatin if her renal function declines. According to ACC/AHA guideline, high-intensity statin therapy is recommended. * Assessment & Plan Note - Antolin Carmona - 08/18/2024 12:16 PM ESTAssociated Problem(s): Allergic rhinitis -previously followed by Dr. Vaughn and Dr. Tatum -pt requests a referral to new ENT and recovery specialist * Assessment & Plan Note - Antolin Carmona - 08/18/2024 12:16 PM ESTAssociated Problem(s): Sarcoidosis - patient had not had an appointment with specialist for a while - recently seen by Dr. Xiao, [facility], in November 2023 - she had lung CT as a part of lung cancer screening which showed no mediastinal lymphadenopathy and stable nodule - patient has reticularis livedo and lately feeling sick, more frequent infection and had Shingles. * Assessment & Plan Note - Antolin Carmona - 08/18/2024 12:16 PM ESTAssociated Problem(s): Prediabetes -06/06/23 A1C 5.8% * Assessment & Plan Note - Antolin Carmona - 08/18/2024 12:15 PM ESTAssociated Problem(s): Osteoporosis -09/27/21 DEXA The lowest T-score -2.5 in lumbar spine -10/26/23 DEXA The lowest T-score -3.1 in femur -Risk factors: smoking, occasional use of steroid for asthma and knee OA -Continue alendronate, started in 2021 -Continue weight-bearing exercise -Repeat DEXA in 1-2 years * Assessment & Plan Note - Antolin Carmona - 08/18/2024 12:15 PM ESTAssociated Problem(s): Osteoarthritis of knee Seen by [facility] provider, last seen in December 2020 s/p steroid injection. recommended to have TKA Follow up as scheduledSeen by [facility] provider, last seen in December 2020 s/p steroid injection. recommended to have TKA Follow up as scheduled * Assessment & Plan Note - Antolin Carmona - 08/18/2024 12:15 PM ESTAssociated Problem(s): Hypertension -Goal BP < 150/90 per JNC-8, < 130/80 per ACC/AHA guideline -BP not at goal today -Continue working on lifestyle modification and medication adherence. -Continue lisinopril 20 mg daily. -Continue HCTZ 25 mg daily, advised to take half pill if systolic BP is less than 110. Due to her age, consider discontinuing in near future and titrate up ACEI. -consider a combination drug for decreasing pill-burden -Return for BP check with our nurse in 2-3 wks. If persistently elevated, will increase lisinopril to 30 mg daily and refer her to [facility]. * Assessment & Plan Note - Antolin Carmona - 08/18/2024 12:15 PM ESTAssociated Problem(s): Lung nodules - CT Scan on 09/27/22 showed LUNG-RADS 2; nodules seemed stable - CT scan on 11/14/23 LUNG - RADS 2, mild emphysema - Continue working on smoking cessation - recommended repeat annually * Assessment & Plan Note - Antolin Carmona - 08/18/2024 12:14 PM ESTAssociated Problem(s): Asthma with COPD ([facility]) - Claim Attorney: Dr. Polanco, seen on 09/27/22 - Maintenance: Previously fluticasone - salmeterol / 500- 50 mcg one puff bid; montelukast 10 mg atbedtime - Rescue: Albuterol HFA prn - Last exacerbation, Today, Apr 2023. Outpatient treatment with prednisone burst 5 days and azithromycin. - Last CT on 11/14/23 Lung RADS 2. Mild emphysema. ; stable nodules; recommended repeat CT scan in 1-year - continue working on smoking cessation - Follow up in 3 mo or sooner prn documented in this encounter Plan of Treatment Scheduled Orders Name Type Priority Associated Diagnoses Orde r Schedule TSH with Reflex to Free T4 Lab Routine Primary hypertension Expected: 08/18/2024 (Approximate), Expires: 08/18/2025 Hemoglobin A1c Lab Routine Prediabetes Expected: 08/18/2024 (Approximate), Expires: 08/18/2025 Comprehensive Metabolic Panel Lab Routine Primary hypertension Expected: 08/18/2024 (Approximate), Expires: 08/18/2025 Lipid Panel with Reflex to Direct LDL Lab Routine Dyslipidemia Expected: 08/18/2024 (Approximate), Expires: 08/18/2025 Albumin, Random Urine W/Creatinine Lab Routine Primary hypertension Expected: 08/18/2024 (Approximate), Expires: 08/18/2025 documented as of this encounter Visit Diagnoses Diagnosis Asthma with COPD (CMS/HCC)- Primary Lung nodules Other diseases of lung, not elsewhere classified Primary hypertension Unspecified essential hypertension Osteoporosis without current pathological fracture, unspecified osteoporosis type Sarcoidosis Tobacco dependence Tobacco use disorder Smoking greater than 20 pack years Sensorineural hearing loss (SNHL) of both ears Moderate major depression (CMS/HCC) Major depressive disorder, single episode, moderate Allergic rhinitis, unspecified seasonality, unspecified trigger Primary osteoarthritis of both knees Prediabetes Other abnormal glucose Dyslipidemia Other and unspecified hyperlipidemia Encounter for immunization documented in this encounter Additional Health Concerns Assessment Noted Time PHQ-9 Depression Total Score: 8 08/18/19 25 11:36 AM EST documented as of this encounter Care Teams Simulation Educator Relationship Specialty Start Date End Date Jackie Butler MD [address] [place] [id number] PCP - General Family Medicine 07/16/18 documented as of this encounter
--- OUTSIDE RECORDS SUMMARY | 2024-08-18 13:55 | XMS_ITS | Clinical Summary ---
Author Organization [employer] Address [address] [facility] [address] [place] [address] Care Team Providers Care System Support Technician Name Role Phone Jackie Butler MD Primary Care Provider [phone] Allergies Active Allergy Reactions Criticality Noted Date Comments Penicillins Hives 09/21/2010 [place] Extract 09/28/2015 Medications * This document contains information received from the source organization and may not represent a complete record from that organization. Fluticasone-Yaniv meterol (Wixela Inhub) 500-50 MCG/ACT aerosol powder 08/30/19 22 Active gabapentin (Neurontin) 300 MG capsule Take 1 capsule by mouth at bedtime, may increase to bid if pain relief is inadequate 60 capsule 3 01/26/20 23 Active albuterol 108 (90 Base) MCG/ACT inhaler Inhale 2 puffs every 4 (four) hours if needed for wheezing or shortness of breath. Maximum 8 puffs per day 18 g 3 06/06/20 23 Active rosuvastatin (Crestor) 40 MG tabletIndicatio ns:Cardiovascul ar event risk Take 1 tablet by mouth daily at bedtime 90 tablet 3 08/06/19 24 Active hydroCHLOROthia zide (HYDRODiuril) 25 MG tabletIndicatio ns:Essential hypertension TAKE 1 TABLET BY MOUTH DAILY 90 tablet 3 08/13/19 24 Active cholecalciferol (D3-1000) 25 MCG (1000 UT) capsuleIndicati ons:Vitamin D deficiency TAKE 1 CAPSULE BY MOUTH DAILY 90 capsule 3 08/13/19 24 Active lisinopril 20 MG tabletIndicatio ns:Essential hypertension TAKE 1 TABLET BY MOUTH DAILY 90 tablet 3 08/13/19 24 Active aspirin (Aspirin Low Dose) 81 MG EC tabletIndicatio ns:Cardiovascul ar event risk TAKE 1 TABLET BY MOUTH DAILY 90 tablet 3 08/13/19 24 Active montelukast (Singulair) 10 MG tabletIndicatio ns:Asthma with COPD (CMS/HCC) TAKE 1 TABLET BY MOUTH EVERY EVENING 90 tablet 3 08/13/19 24 Active triamcinolone (Kenalog) 0.1 % ointment Apply to affected area thin layer once or twice daily. Apply immediately after shower / bath. 80 g 3 10/23/19 24 Active loratadine (Claritin) 10 MG tablet TAKE 1 TABLET BY MOUTH DAILY 90 tablet 1 11/21/19 24 Active alendronate (Fosamax) 70 MG tabletIndicatio ns:Osteoporosis without current pathological fracture, unspecified osteoporosis type TAKE 1 TABLET BY MOUTH EVERY WEEK IN THE MORNING AT LEAST 30 MINUTES BEFORE FIRST FOOD, BEVERAGE, OR MED OF THE DAY 12 tablet 1 01/23/20 24 Active omeprazole (PriLOSEC) [address] capsuleIndicati ons:Gastroesoph ageal reflux disease, unspecified whether esophagitis present TAKE 1 CAPSULE BY MOUTH DAILY BEFORE A MEAL 90 capsule 1 03/28/20 24 Active azithromycin (Zithromax) 250 MG tablet Take 2 tablets by mouth on day 1, 1 tablet from day 2 to day 5. 6 tablet 04/14/20 24 2024 Discontinued(M ed list cleanup (will not trigger notification to Pharmacy)) Active Problems Problem Noted Date Diagnosed Date TRACY (generalized anxiety disorder) 10/24/2023 Smoking greater than 20 pack years 10/23/2023 Assessment & Plan (08/18/2024 12:17 PM EST): - pt reports being three weeks smoke free - low dose lung cancer screening CT in November 2023 Lung RADS 2 at [facility] - repeat CT in 1 year Assessment & Plan (04/21/2024 6:06 AM EDT): - continue working on smoking cessation - low dose lung cancer screening CT in November 2023 Lung RADS 2 at [facility] - repeat CT in 1 year Assessment & Plan (01/14/2024 10:19 AM EDT): - continue working on smoking cessation - low dose lung cancer screening CT in November 2023 Lung RADS 2 at [facility] - repeat CT in 1 year Assessment & Plan (10/23/2023 9:51 AM EDT): - continue working on smoking cessation - low dose lung cancer screening CT in September 2022 Lung RADS 2 at [facility] - repeat CT Sensorineural hearing loss (SNHL) of both ears 0 01/25/2023 Assessment & Plan (08/18/2024 12:17 PM EST): - seen by research and development technician and recommended to use hearing aids Assessment & Plan (08/12/2023 11:31 AM EST): - seen by research and development technician and recommended to use hearing aids Assessment & Plan (06/06/2023 1:08 PM EST): - seen by research and development technician and recommended to use hearing aids - difficulty affording hearing aids; will check [facility] Chronic pain of left knee 11/24/2022 Assessment & Plan (06/06/2023 1:06 PM EST): - followed by [facility] provider - pt was recommended to have TKR, but pt declined Assessment & Plan (11/24/2022 5:43 PM EDT): - followed by [facility] provider - pt was recommended to have TKR, but pt declined - refer to PT Postherpetic neuralgia 11/21/2022 Assessment & Plan (04/15/2024 8:09 AM EDT): - Dx Shingles in 08/2022, 1st episode - Treated with Valacyclovir - Lesions have resolved (very small scars), yet pain persists - Continue Gabapentin 600 mg at bedtime Assessment & Plan (10/23/2023 9:54 AM EDT): - Dx Shingles in 08/2022, 1st episode - Treated with Valacyclovir - Lesions have resolved (very small scars), yet pain persists - Continue Gabapentin 600 mg at bedtime Assessment & Plan (06/06/2023 1:02 PM EST): - Dx Shingles in 08/2022, 1st episode - Treated with Valacyclovir - Lesions have resolved (very small scars), yet pain persists - Continue Gabapentin 600 mg at bedtime Assessment & Plan (01/25/2023 11:49 AM EDT): - Dx Shingles in 08/2022, 1st episode - Treated with Valacyclovir - Lesions have resolved (very small scars), yet pain persists - Patient was initially hesitant to start gabapentin but agreed to try, she was prescribed Gabapentin 300 mg at bedtime and could increase to twice daily, as tolerated - will check labs Assessment & Plan (11/24/2022 5:37 PM EDT): - Dx Shingles in 08/2022, 1st episode - Treated with Valacyclovir - Lesions have resolved (very small scars), yet pain persists - Patient was initially hesitant to start gabapentin but agreed to try, she was prescribed Gabapentin 300 mg at bedtime and could increase to twice daily, as tolerated - will check labs Paresthesia 11/21/2022 Assessment & Plan (11/24/2022 5:36 PM EDT): - Likely due to postherpetic neuralgia - will check lab Leg cramps 11/21/2022 Assessment & Plan (11/21/2022 12:28 PM EDT): Will refer to Physical Therapy Osteoporosis 09/02/2022 Assessment & Plan (08/18/2024 12:15 PM EST): -09/27/21 DEXA The lowest T-score -2.5 in lumbar spine -10/26/23 DEXA The lowest T-score -3.1 in femur -Risk factors: smoking, occasional use of steroid for asthma and knee OA -Continue alendronate, started in 2021 -Continue weight-bearing exercise -Repeat DEXA in 1-2 years Assessment & Plan (01/14/2024 10:17 AM EDT): -09/27/21 DEXA The lowest T-score -2.5 in lumbar spine -10/26/23 DEXA The lowest T-score -3.1 in femur -Risk factors: smoking, occasional use of steroid for asthma and knee OA -Continue alendronate, started in 2021 -Continue weight-bearing exercise -Repeat DEXA in 1-2 years Assessment & Plan (10/25/2023 2:33 PM EDT): -09/27/21 DEXA The lowest T-score -2.5 in lumbar spine -Risk factors: smoking, occasional use of steroid for asthma and knee OA -Continue alendronate, started in 2021 -Continue weight-bearing exercise -Repeat DEXA Assessment & Plan (08/12/2023 11:21 AM EST): -09/27/21 DEXA The lowest T-score -2.5 in lumbar spine -Risk factors: smoking, occasional use of steroid for asthma and knee OA -Continue alendronate, started in 2021 -Continue weight-bearing exercise -Repeat DEXA Assessment & Plan (06/06/2023 1:06 PM EST): -09/27/21 DEXA The lowest T-score -2.5 in lumbar spine -Risk factors: smoking, occasional use of steroid for asthma and knee OA -Continue alendronate, started in 2021 -Continue weight-bearing exercise -Repeat DEXA in 2-3 years Assessment & Plan (01/25/2023 11:49 AM EDT): -09/27/21 DEXA The lowest T-score -2.5 in lumbar spine -Risk factors: smoking, occasional use of steroid for asthma and knee OA -Continue alendronate, started in 2021 -Continue weight-bearing exercise -Repeat DEXA in 2-3 years Assessment & Plan (11/24/2022 5:44 PM EDT): -09/27/21 DEXA The lowest T-score -2.5 in lumbar spine -Risk factors: smoking, occasional use of steroid for asthma and knee OA -Continue alendronate, started in 2021 -Continue weight-bearing exercise -Repeat DEXA in 2-3 years Assessment & Plan (09/02/2022 5:58 AM EST): -09/27/21 DEXA The lowest T-score -2.5 in lumbar spine -Risk factors: smoking, occasional use of steroid for asthma and knee OA -Continue alendronate, started in 2021 -Continue weight-bearing exercise -Repeat DEXA in 2-3 years Lung nodules 09/02/2022 Assessment & Plan (08/18/2024 12:15 PM EST): - CT Scan on 09/27/22 showed LUNG-RADS 2; nodules seemed stable - CT scan on 11/14/23 LUNG - RADS 2, mild emphysema - Continue working on smoking cessation - recommended repeat annually Assessment & Plan (04/15/2024 8:10 AM EDT): - CT Scan on 09/27/22 showed LUNG-RADS 2; nodules seemed stable - CT scan on 11/14/23 LUNG - RADS 2, mild emphysema - Continue working on smoking cessation - recommended repeat annually Assessment & Plan (01/14/2024 10:13 AM EDT): - CT Scan on 09/27/22 showed LUNG-RADS 2; nodules seemed stable - CT scan on 11/14/23 LUNG - RADS 2, mild emphysema - Continue working on smoking cessation - recommended repeat annually Assessment & Plan (10/23/2023 9:45 AM EDT): - CT Scan on 09/27/22 showed LUNG-RADS 2; nodules seemed stable - recommended repeat annually Assessment & Plan (08/12/2023 11:19 AM EST): - CT Scan on 09/27/22 showed LUNG-RADS 2; nodules seemed stable - recommended repeat annually Assessment & Plan (06/06/2023 1:02 PM EST): - CT Scan on 09/27/22 showed LUNG-RADS 2; nodules seemed stable - recommended repeat annually Assessment & Plan (11/24/2022 5:40 PM EDT): - CT Scan on 09/27/22 showed LUNG-RADS 2; nodules seemed stable - recommended repeat annually Assessment & Plan (09/02/2022 6:02 AM EST): -most recent CT scan in Apr 2021 showed stable nodularity; stable mild prominent mediastinal adenopathy -repeat CT scan -refer back to [facility] Tobacco dependence 08/23/2022 Assessment & Plan (08/18/2024 12:18 PM EST): Continue working on smoking cessation Continue lung cancer screening Assessment & Plan (04/15/2024 8:12 AM EDT): Continue working on smoking cessation Continue lung cancer screening Assessment & Plan (01/14/2024 10:18 AM EDT): Continue working on smoking cessation Continue lung cancer screening Assessment & Plan (10/23/2023 9:50 AM EDT): Continue working on smoking cessation Update lung cancer screening CT Assessment & Plan (08/12/2023 11:31 AM EST): Continue working on smoking cessation Assessment & Plan (06/06/2023 1:07 PM EST): Continue working on smoking cessation Assessment & Plan (11/21/2022 12:15 PM EDT): Continue working on smoking cessation Assessment & Plan (08/23/2022 9:02 AM EST): Continue working on smoking cessation Allergic rhinitis 08/23/2022 Assessment & Plan (08/18/2024 12:16 PM EST): -previously followed by Dr. Vaughn and Dr. Tatum -pt requests a referral to new ENT and health and nutrition specialist Assessment & Plan (11/21/2022 12:16 PM EDT): -previously followed by Dr. Vaughn and Dr. Tatum -pt requests a referral to new ENT and health and nutrition specialist Assessment & Plan (09/02/2022 5:46 AM EST): -previously followed by Dr. Vaughn and Dr. Tatum -pt requests a referral to new ENT and health and nutrition specialist Colon cancer screening 08/23/2022 Assessment & Plan (04/21/2024 6:07 AM EDT): - Seen by [facility] on 08/18/21 and scheduled for colonoscopy in October 2021. - Patient did not have a colonoscopy as scheduled, and was re-referred - patient now requested stool test - cologuard is ordered again Assessment & Plan (10/23/2023 9:49 AM EDT): - Seen by [facility] on 08/18/21 and scheduled for colonoscopy in October 2021. - Patient did not have a colonoscopy as scheduled, and was re-referred - patient now requests stool test - cologuard is ordered Assessment & Plan (08/12/2023 11:32 AM EST): Pt was seen by [facility] on 08/18/21. -Scheduled for colonoscopy in October 2021. -Pt did not have a colonoscopy as scheduled, will check its status Assessment & Plan (06/06/2023 1:09 PM EST): Pt was seen by [facility] on 08/18/21. -Scheduled for colonoscopy in October 2021. -Pt did not have a colonoscopy as scheduled, will check its status Assessment & Plan (11/21/2022 12:30 PM EDT): Pt was seen by [facility] on 08/18/21. -Scheduled for colonoscopy in October 2021. -Pt did not have a colonoscopy as scheduled, will check its status Assessment & Plan (09/02/2022 5:45 AM EST): Pt was seen by [facility] on 08/18/21. -Scheduled for colonoscopy in October 2021. -Pt did not have a colonoscopy as scheduled, will check its status Vitamin D deficiency 06/17/2015 Assessment & Plan (10/23/2023 9:47 AM EDT): - last DEXA in 2021 -upcoming appointment for DEXA -Continue vitamin d supplementation Assessment & Plan (06/06/2023 1:06 PM EST): -Continue vitamin d supplementation Assessment & Plan (11/21/2022 12:14 PM EDT): -Continue vitamin d supplementation Moderate major depression 01/08/2014 Assessment & Plan (08/18/2024 12:17 PM EST): - Hx Diagnosis of bipolar disorder. - Previous medication: Depakote, but patient discontinued (unclear when it was started and if it was for Hx seizure disorder, no seizure > 15 years -previously seen by [facility] clinician -Patient seeking in-person counseling Assessment & Plan (04/15/2024 8:12 AM EDT): - Hx Diagnosis of bipolar disorder. - Previous medication: Depakote, but patient discontinued (unclear when it was started and if it was for Hx seizure disorder, no seizure > 15 years -previously seen by [facility] clinician -Patient started in-person counseling since May 2020 Assessment & Plan (08/12/2023 11:31 AM EST): - Hx Diagnosis of bipolar disorder. - Previous medication: Depakote, but patient discontinued (unclear when it was started and if it was for Hx seizure disorder, no seizure > 15 years -previously seen by [facility] clinician -Patient started in-person counseling since May 2020 Assessment & Plan (11/21/2022 12:20 PM EDT): Hx Diagnosis of bipolar disorder. Previous medication: Depakote -previously seen by [facility] clinician -Patient started in-person counseling since May 2020 -Patient declined to take depakote, agreed to discontinue Assessment & Plan (08/23/2022 9:00 AM EST): Hx Diagnosis of bipolar disorder. Previous medication: Depakote -previously seen by [facility] clinician -Patient started in-person counseling since May 2020 -agreed to restart Depakote for her history of bipolar disorder in May 2020 -continue Depakote at this time Asthma with COPD 02/29/2012 Assessment & Plan (08/18/2024 12:14 PM EST): - Trim Machine Operator: Dr. Polanco, seen on 09/27/22 - Maintenance: Previously fluticasone - salmeterol / 500- 50 mcg one puff bid; montelukast 10 mg at bedtime - Rescue: Albuterol HFA prn - Last exacerbation, Today, Apr 2023. Outpatient treatment with prednisone burst 5 days and azithromycin. - Last CT on 11/14/23 Lung RADS 2. Mild emphysema. ; stable nodules; recommended repeat CT scan in 1-year - continue working on smoking cessation - Follow up in 3 mo or sooner prn Assessment & Plan (04/21/2024 6:03 AM EDT): - Trim Machine Operator: Dr. Polanco, seen on 09/27/22 - Maintenance: Previously fluticasone - salmeterol / 500- 50 mcg one puff bid; montelukast 10 mg at bedtime - Rescue: Albuterol HFA prn - Last exacerbation, Today, Apr 2023. Outpatient treatment with prednisone burst 5 days and azithromycin. - Last CT on 11/14/23 Lung RADS 2. Mild emphysema. ; stable nodules; recommended repeat CT scan in 1-year - continue working on smoking cessation - Follow up in 3 mo or sooner prn Assessment & Plan (01/13/2024 11:47 AM EDT): - Trim Machine Operator: Dr. Polanco, seen on 09/27/22 - Maintenance: Previously fluticasone - salmeterol / 500- 50 mcg one puff bid; montelukast 10 mg at bedtime - Rescue: Albuterol HFA prn - Last exacerbation, May 2023. Outpatient treatment with prednisone burst 5 days. - CT Scan on 09/27/22 showed L-RADS 2; stable nodules; recommended repeat CT scan in 1-year - continue working on smoking cessation - Follow up in 3 mo or sooner prn Assessment & Plan (10/22/2023 9:48 PM EDT): - Trim Machine Operator: Dr. Polanco, seen on 09/27/22 - Maintenance: Previously fluticasone - salmeterol / 500- 50 mcg one puff bid; montelukast 10 mg at bedtime - Rescue: Albuterol HFA prn - Last exacerbation, May 2023. Outpatient treatment with prednisone burst 5 days. - CT Scan on 09/27/22 showed L-RADS 2; stable nodules; recommended repeat CT scan in 1-year - continue working on smoking cessation - Follow up in 3 mo or sooner prn Assessment & Plan (08/12/2023 11:19 AM EST): - Trim Machine Operator: Dr. Polanco, seen on 09/27/22 - Maintenance: Previously fluticasone - salmeterol / 500- 50 mcg one puff bid; montelukast 10 mg at bedtime - Rescue: Albuterol HFA prn - Last exacerbation, in May 2019. Outpatient Tx. Rx prednisone. - Exacerbation today, May 2023. Will prescribe prednisone burst 5 days. - CT Scan on 09/27/22 showed L-RADS 2; stable nodules; recommended repeat CT scan in 1-year - continue working on smoking cessation - Follow up in 3 mo or sooner prn Assessment & Plan (06/06/2023 1:05 PM EST): - Trim Machine Operator: Dr. Polanco, seen on 09/27/22 - Maintenance: Previously fluticasone - salmeterol / 500- 50 mcg one puff bid; montelukast 10 mg at bedtime - Rescue: Albuterol HFA prn - Last exacerbation, in May 2019. Outpatient Tx. Rx prednisone. - Exacerbation today, May 2023. Will prescribe prednisone burst 5 days. - CT Scan on 09/27/22 showed L-RADS 2; stable nodules; recommended repeat CT scan in 1-year - continue working on smoking cessation - Follow up in 3 mo or sooner prn Assessment & Plan (01/25/2023 11:45 AM EDT): - Trim Machine Operator: Dr. Polanco, seen on 09/27/22 - Maintenance: Previously Advair 500/50 mcg one puff bid; Singulair 10 mg at bedtime; medications were changed will confirm with [facility] - Rescue: Albuterol HFA prn - Last exacerbation, in May 2019. Outpatient Tx. Rx prednisone. - CT Scan on 09/27/22 showed L-RADS 2; stable nodules; recommended repeat CT scan in 1-year - continue working on smoking cessation - Follow up in 3-6 mo or sooner prn Assessment & Plan (11/24/2022 5:40 PM EDT): - Trim Machine Operator: Dr. Polanco, recently seen. - Maintenance: Previously Advair 500/50 mcg one puff bid; Singulair 10 mg at bedtime; medications were changed will confirm with [facility] - Rescue: Albuterol HFA prn - Last exacerbation, in May 2019. Outpatient Tx. Rx prednisone. - CT Scan on 09/27/22 showed L-RADS 2; stable nodules; recommended repeat CT scan in 1-year - continue working on smoking cessation - Follow up in 3-6 mo or sooner prn Assessment & Plan (08/23/2022 8:55 AM EST): -Trim Machine Operator: Dr. Polanco, resumed care since 08/2019. -Maintenance: Advair 500/50 mcg one puff bid; Singulair 10 mg qhs -Rescue: Albuterol HFA prn -Last exacerbation, in May 2019. Outpatient Tx. Rx prednisone. -most recent CT done in 04/2021, stable pulmonary nodule, repeat in 6-12 months Chronic kidney disease (CKD), stage II (mild) Assessment & Plan (10/23/2023 9:46 AM EDT): between II and IIIa Previously seen by Nephrology, Dr. Hawley on 09/12/19. avoid nephrotoxic drugs Assessment & Plan (08/12/2023 11:21 AM EST): between II and IIIa Previously seen by Nephrology, Dr. Hawley on 09/12/19. avoid nephrotoxic drugs Assessment & Plan (06/06/2023 1:05 PM EST): between II and IIIa Previously seen by NephrologyDr. Hawley on 09/12/19. avoid nephrotoxic drugs Assessment & Plan (08/23/2022 8:55 AM EST): 06/14/20 K 4.4; BUN 24; SCr 1.1; eGFR 52; Bicarb 27 between II and IIIa seen by Nephrology, Dr. Hawley on 09/12/19. avoid nephrotoxic drugs Sarcoidosis 02/29/2012 Assessment & Plan (08/18/2024 12:16 PM EST): - patient had not had an appointment with specialist for a while - recently seen by Dr. Xiao, [facility] Administrative Services Officer, in November 2023 - she had lung CT as a part of lung cancer screening which showed no mediastinal lymphadenopathy and stable nodule - patient has reticularis livedo and lately feeling sick, more frequent infection and had Shingles. Assessment & Plan (04/21/2024 6:06 AM EDT): - patient had not had an appointment with specialist for a while - recently seen by Dr. Xiao, [facility] Administrative Services Officer, in November 2023 - she had lung CT as a part of lung cancer screening which showed no mediastinal lymphadenopathy and stable nodule - patient has reticularis livedo and lately feeling sick, more frequent infection and had Shingles. Assessment & Plan (10/23/2023 9:48 AM EDT): - patient has not been followed by a specialist - she had lung CT as a part of lung cancer screening in September 2022, no mediastinal lymphadenopathy and stable nodule - patient has reticularis livedo and lately feeling sick, more frequent infection and had Shingles. Will check lab. Refer to driver salesman for their recommendation on management Assessment & Plan (08/12/2023 11:26 AM EST): - patient has not been followed by a specialist - she had lung CT as a part of lung cancer screening in September 2022, no mediastinal lymphadenopathy and stable nodule Dyslipidemia 02/29/2012 Assessment & Plan (08/18/2024 12:16 PM EST): Current medication: Rosuvastatin 40 mg at bedtime Last lipid profile: 06/06/23 TC 289; TG 102; HDL 52; LDL 216 Encourage her to improve adherence to medication and lifestyle modification May need to change to Atorvastatin if her renal function declines. According to ACC/AHA guideline, high-intensity statin therapy is recommended. Assessment & Plan (04/15/2024 8:12 AM EDT): Current medication: Rosuvastatin 40 mg at bedtime Last lipid profile: 06/06/23 TC 289; TG 102; HDL 52; LDL 216 Encourage her to improve adherence to medication and lifestyle modification May need to change to Atorvastatin if her renal function declines. According to ACC/AHA guideline, high-intensity statin therapy is recommended. Assessment & Plan (10/23/2023 9:50 AM EDT): Current medication: Rosuvastatin 40 mg at bedtime Last lipid profile: 06/06/23 TC 289; TG 102; HDL 52; LDL 216 Encourage her to improve adherence to medication and lifestyle modification May need to change to Atorvastatin if her renal function declines. According to ACC/AHA guideline, high-intensity statin therapy is recommended. Assessment & Plan (08/12/2023 11:28 AM EST): Current medication: Rosuvastatin 40 mg at bedtime Last lipid profile: 06/06/23 TC 289; TG 102; HDL 52; LDL 216 Encourage her to improve adherence to medication and lifestyle modification May need to change to Atorvastatin if her renal function declines. According to ACC/AHA guideline, high-intensity statin therapy is recommended. Assessment & Plan (06/06/2023 1:08 PM EST): Current medication: Rosuvastatin 40 mg at bedtime Last lipid profile: 08/23/22 TC 207; TG 117; HDL 58; LDL 127 Encourage her to improve adherence to medication and lifestyle modification May need to change to Atorvastatin if her renal function declines. According to ACC/AHA guideline, 10-year ASCVD risk is 15 % and high-intensity statin therapy is recommended. Assessment & Plan (11/21/2022 12:12 PM EDT): Current medication: Crestor 40 mg at bedtime Last lipid profile: 08/23/22 TC 207; TG 117; HDL 58; LDL 127 Encourage her to improve adherence to Crestor. May need to change to Atorvastatin if her renal function declines. According to ACC/AHA guideline, 10-year ASCVD risk is 15 % and high-intensity statin therapy is recommended. Assessment & Plan (09/02/2022 5:45 AM EST): Current medication: Crestor 40 mg at bedtime Last lipid profile: 06/14/20 TC 208; TG 81; HDL 62; LDL 128 Encourage her to improve adherence to Crestor. May need to change to Atorvastatin if her renal function declines. According to ACC/AHA guideline, 10-year ASCVD risk is 15 % and high-intensity statin therapy is recommended. Hypertension 02/29/2012 Assessment & Plan (08/18/2024 12:15 PM EST): -Goal BP < 150/90 per JNC-8, < [...] mg daily and refer her to CDTM. Assessment & Plan (01/16/2024 2:09 PM EDT): -Goal BP < 150/90 per JNC-8, < [...] mg daily and refer her to [facility]. Assessment & Plan (10/23/2023 9:46 AM EDT): -Goal BP < 150/90 per JNC-8, < 130/80 per ACC/AHA guideline -Continue working on lifestyle modification and medication adherence. -Continue lisinopril 20 mg daily -Continue HCTZ 25 mg daily, advised to take half pill if systolic BP is less than 110 -consider a combination drug for decreasing pill-burden -follow-up in 3 mo or sooner if any problem arises Assessment & Plan (08/12/2023 11:21 AM EST): -Goal BP < 140/90 per JNC-8, < 130/80 per ACC/AHA guideline -Continue working on lifestyle modification and medication adherence. -Continue lisinopril to 20 mg daily -Continue HCTZ 25 mg daily, advised to take half pill if systolic BP is less than 110 -consider a combination drug for decreasing pill-burden -follow-up in 3 mo or sooner if any problem arises Assessment & Plan (06/06/2023 1:04 PM EST): -Goal BP < 140/90 per JNC-8, < 130/80 per ACC/AHA guideline -Continue working on lifestyle modification and medication adherence. -Continue lisinopril to 20 mg daily -Continue HCTZ 25 mg daily, advised to take half pill if systolic BP is less than 110 - may need to adjust if concern for renal hypoperfusion or proteinuria -advised to check BP at home and contact us if BP consistently elevated -follow-up in 3 mo or sooner if any problem arises Assessment & Plan (01/25/2023 11:45 AM EDT): -Goal BP < 140/90 per JNC-8, < 130/80 per ACC/AHA guideline -Continue working on lifestyle modification and medication adherence. -Continue lisinopril to 20 mg daily -Continue HCTZ 25 mg daily, advised to take half pill if systolic BP is less than 110 - may need to adjust if concern for renal hypoperfusion or proteinuria -advised to check BP at home and contact us if BP consistently elevated -follow-up in 3 mo or sooner if any problem arises Assessment & Plan (11/21/2022 12:13 PM EDT): -Goal BP < 140/90 per JNC-8, < 130/80 per ACC/AHA guideline -Continue working on lifestyle modification and medication adherence. -Continue lisinopril to 20 mg daily -Continue HCTZ 25 mg daily, advised to take half pill if systolic BP is less than 110 - may need to adjust if concern for renal hypoperfusion or proteinuria -advised to check BP at home and contact us if BP consistently elevated -follow-up in 3 mo or sooner if any problem arises Assessment & Plan (09/02/2022 5:43 AM EST): -Goal BP < 140/90 per JNC-8, < 130/80 per ACC/AHA guideline -Continue working on lifestyle modification and medication adherence. -Continue lisinopril to 20 mg daily -Continue HCTZ 25 mg daily, advised to take half pill if systolic BP is less than 110 - may need to adjust if concern for renal hypoperfusion or proteinuria -advised to check BP at home and contact us if BP consistently elevated -follow-up in 3 mo or sooner if any problem arises Prediabetes 02/29/2012 Assessment & Plan (08/18/2024 12:16 PM EST): -06/06/23 A1C 5.8% Assessment & Plan (04/21/2024 6:04 AM EDT): -06/06/23 A1C 5.8% Assessment & Plan (08/12/2023 11:24 AM EST): -06/06/23 A1C 5.8% Migraine 02/29/2012 Osteoarthritis of knee 02/29/2012 Assessment & Plan (08/18/2024 12:15 PM EST): Seen by [facility] provider, last seen in December 2020 s/p steroid injection. recommended to have TKA Follow up as scheduledSeen by [facility] provider, last seen in December 2020 s/p steroid injection. recommended to have TKA Follow up as scheduled Assessment & Plan (04/15/2024 8:12 AM EDT): Seen by [facility] provider, last seen in December 2020 s/p steroid injection. recommended to have TKA Follow up as scheduledSeen by [facility] provider, last seen in December 2020 s/p steroid injection. recommended to have TKA Follow up as scheduled Assessment & Plan (01/14/2024 10:17 AM EDT): Seen by [facility] provider, last seen in December 2020 s/p steroid injection. recommended to have TKA Follow up as scheduledSeen by [facility] provider, last seen in December 2020 s/p steroid injection. recommended to have TKA Follow up as scheduled Assessment & Plan (06/06/2023 1:06 PM EST): Seen by [facility] provider, last seen in December 2020 s/p steroid injection. recommended to have TKA Follow up as scheduled Assessment & Plan (01/25/2023 11:49 AM EDT): Seen by [facility] provider, last seen in December 2020 s/p steroid injection. recommended to have TKA Follow up as scheduled Assessment & Plan (11/21/2022 12:13 PM EDT): Seen by [facility] provider, last seen in December 2020 s/p steroid injection. recommended to have TKA Follow up as scheduled Assessment & Plan (09/02/2022 5:44 AM EST): Seen by [facility] provider, last seen in December 2020 s/p steroid injection. recommended to have TKA Follow up as scheduled Seizure disorder 02/29/2012 Assessment & Plan (11/21/2022 12:29 PM EDT): Seizure-Free for Many years -Does not drive herself -Discontinued Depakote since it was originally started for Bipolar Disorder Resolved Problems Problem Noted Date Diagnosed Date Resolved Date Weight gain 12/18/2017 04/25/2023 04/21/2024 Cannabis abuse 06/17/2015 08/23/2022 Encounters Date Type Department Care Team Description 08/18/2024 11:15 AM EST Office Visit [facility] [address] [place] [phone] Jackie Butler MD Asthma with COPD (CMS/HCC) (Primary Dx); Lung nodules; Primary hypertension; Osteoporosis without current pathological fracture, unspecified osteoporosis type; Sarcoidosis; Tobacco dependence; Smoking greater than 20 pack years; Sensorineural hearing loss (SNHL) of both ears; Moderate major depression (CMS/HCC); Allergic rhinitis, unspecified seasonality, unspecified trigger; Primary osteoarthritis of both knees; Prediabetes; Dyslipidemia; Encounter for immunization 08/18/2024 Travel 08/14/2024 Telephone [facility] [address] [place] [address] Arina White MA chart prep 07/03/2024 Telephone [facility] [address] [place] [address] Arina White MA chart prep from Last 3 Months Immunizations Name Administration Dates Next Due Hep A, Adult 08/18/2024,01/14/2024 Influenza High-dose Quadrivalent Preservative Fr ee 06/06/2023,06/14/2020 Influenza injectable quadriv alent IIV4 with preservative 08/06/2017,06/17/2015 Influenza injectable quadrivalent preservative f ree 06/16/2021,09/30/2018 Influenza, High Dose Seasonal, Preservative Free 08/18/2024,05/19/2019 Influenza, IIV3, injectable 04/16/2014, 1 Influenza, Split (incl. purified surface antigen ) 09/29/2013 Pneumococcal Conjugate PCV 13 08/06/2017 Pneumococcal Polysaccharide PPSV23 09/30/2018, RSV Bivalent 08/06/2023 TD (adult), 2 Lf tetanus tox oid, preservative free, adsorbed 11/22/2006 Tdap 01/25/2023,12/25/2011 Zoster, Recombinant 08/06/2023,01/25/2023 Zoster, live 08/06/2017 Social History Tobacco Use Types Packs/Day Years Used Date Smoking Tobacco: Every Day Cigarettes Passive Smoke Exposure: Current Smokeless Tobacco: Never Tobacco Cessation:Ready to Q uit: Not Asked; Counseling Given: Not Answered Alcohol Use Standard Drinks/Week Comments Never 0 [...] Orientation Straight 05/15/2022 10 :17 AM EDT Last Filed Vital Signs Vital Sign Reading [...] 6.4 oz) 08/18/2024 11:38 AM EST Height 163 cm (5' 4.17 ) 04/14/2024 11:15 AM EDT Body Mass Index 22.43 04/14/2024 11:15 AM EDT Plan of Treatment Health Maintenance Due Date Last Done Comments CT Colonography 1950 Colonoscopy 1950 Colorectal Cancer Screening 1950 FIT DNA/Cologuard 1950 FIT 1950 FOBT 1950 Sigmoidoscopy 1950 COVID-19 Vaccine ( season) 2024 Diabetes: Hemoglobin A1C 06/06/2024 023, 08/23/2022, 06/14/2020 Alcohol/Substance Use Screening 01/13/2025 01/14/2024 Depression Screening 08/18/2025 08/18/2024, 08/18/19 25 SDOH Screening 08/18/2025 08/18/2024 Tobacco Screening 08/18/2025 08/18/2024 Mammogram 11/01/2025 11/02/2023, 09/13, 09/27/2021, Additional history exists Lipid Panel 10/22/2028 10/23/2023, 05/17, 08/23/2022, Additional history exists DTaP/Tdap/Td Vaccines (3 - Td or Tdap) 01/25/2033 01/25/2023, 12/25/2011, 11/22/2006 Pneumococcal Vaccine: 50+ Years Completed 09/30/2018, 08/06/2017, 12/25/2011 RSV Patients and Patients Aged 60 years or older Completed 08/06/2023 Zoster Vaccines Completed 08/06/2023, 01/13, 08/06/2017 Hepatitis C Screening Completed 10/23/2023, 023 Hepatitis A Vaccines Completed 08/18/2024, 01/14/20 24 Influenza Vaccine Completed 08/18/2024, , 06/16/2021, Additional history exists HIB Vaccines Aged Out No longer eligi ble based on patient's age to complete this topic HPV Vaccines Aged Out No longer eligi ble based on patient's age to complete this topic Hepatitis B Vaccines Aged Out No long er eligible based on patient's age to complete this topic IPV Vaccines Aged Out No longer eligi ble based on patient's age to complete this topic Meningococcal Vaccine Aged Out No gold tiana eligible based on patient's age to complete this topic RSV under 20 months Aged Out No longe r eligible based on patient's age to complete this topic Rotavirus Vaccines Aged Out No longer eligible based on patient's age to complete this topic Procedures Procedure Name Priority Date/Time Associated Diagnosis Comments BI MAMMOGRAM SCREENING TOMOSYNTHESIS BILATERAL Routine 11/02/2023 3:20 PM EDT HEPATITIS C AB W/REFL TO HCV RNA, QN, PCR Routine 10/23/2023 10:12 AM EDT Sarcoidosis LIPID PANEL WITH REFLEX TO DIRECT LDL Routine 10/23/2023 10:12 AM EDT Dyslipidemia HEMOGLOBIN A1C Routine 06/06/2023 12:24 PM EST Weight loss from Last 3 Months or Most Recently Relevant to Health Maintenance Results * BI Mammogram Screening Tomosynthesis Bilateral (11/02/2023 3:20 PM EDT) Anatomical Region Laterality Modality Breast Bilateral Mammography 11/02/2023 3:20 PM EDT Narrative 12/03/2023 4:12 AM EDT ? [facility] ? [address] ?[place] [address] ? Mammography Report ? Signed ? Patient: Villaran,Earline T ?MR#: [id number] ?? [id number] ? : 1950 ?Acct:[id number] ? Age/Sex: 73 / F ?ADM Date: 11/02/23 ? Loc: HO.MAMMO ? Attending Dr: Jackie Butler MD ? Ordering Physician: Jackie Butler MD ?Results: 1Negative ? Date of Service: 11/02/23 ?Follow Up: 1 Year From Orig ?? inal Mammogram ? Procedure(s): MM tomosynthesis screening BI ?? Accession Number(s): [id number] ? cc: Jackie Butler MD ? EXAMINATION: ?? MM SCREENING DIGITAL BREAST TOMOSYNTHESIS, BILATERAL ? CLINICAL INFORMATION: ? Screening. Asymptomatic. ? COMPARISON: ?? Mammography: This study is compared with prior exams dating back to ?? 2019. ? TECHNIQUE: ?? Digital breast tomosynthesis is performed in both the craniocaudal and ?? mediolateral oblique views along with computer-aided detection (CAD). ?? Synthesized 2D images are generated from the tomosynthesis. ? FINDINGS: ?? There are scattered areas of fibroglandular density (ACR BI-RADS breast ?? composition Category b). ? There are no significant masses, abnormal calcifications, or other ?? abnormalities. ? MM/MM tomosynthesis screening BI ?? IMPRESSION: ?? No mammographic evidence of malignancy. ? ASSESSMENT: ? BI-RADS BI-RADS 1 - Negative ? RECOMMENDATION: ?? Routine annual mammography screening. ? 1 year F/U ? This examination should not preclude the clinical evaluation of a ?? suspicious palpable abnormality. ? This patient's information was entered into a reminder system with a ?? target due date for their next mammogram. ? Dictated By: ?Kimber Smith MD ? Signed By: ?<Electronically signed by Kimber Smith MD in OV> ? 12/02/8 ? DD/ 1520 ? TD/TT: ? Behavioral Health Director: ? Procedure Note Donjonathonter, Image - 12/03/2023 [facility] [address] [place], [place] [address] Mammography Report Signed Patient: Earline Mcduffie TMR#: [id number] : 2Acct:[id number] Age/Sex: 73 / FADM Date: 11/02/23 Loc: [facility] Attending Dr: Jackie Butler MD Ordering Physician: Jackie Butler MDResults: 1Negative Date of Service: 11/02/23Follow Up: 1 Year From Orig ina Mammogram Procedure(s): MM tomosynthesis screening BI Accession Number(s): [id number] cc: Jackie Butler MD EXAMINATION: MM SCREENING DIGITAL BREAST TOMOSYNTHESIS, BILATERAL CLINICAL INFORMATION: Screening. Asymptomatic. COMPARISON: Mammography: This study is compared with prior exams dating back to 2019. TECHNIQUE: Digital breast tomosynthesis is performed in both the craniocaudal and mediolateral oblique views along with computer-aided detection (CAD). Synthesized 2D images are generated from the tomosynthesis. FINDINGS: There are scattered areas of fibroglandular density (ACR BI-RADS breast composition Category b). There are no significant masses, abnormal calcifications, or other abnormalities. MM/MM tomosynthesis screening BI IMPRESSION: No mammographic evidence of malignancy. ASSESSMENT: BI-RADS BI-RADS 1 - Negative RECOMMENDATION: Routine annual mammography screening. 1 year F/U This examination should not preclude the clinical evaluation of a suspicious palpable abnormality. This patient's information was entered into a reminder system with a target due date for their next mammogram. Dictated By: Kimber Smith MD Signed By: <Electronically signed by Kimber Smith MD in OV> 12/03/23 0408 DD/ 1520 TD/TT: Behavioral Health Director: Jackie Butler MD IMG BI PROCEDURES Edited Result - Final * (ABNORMAL) Lipid Panel with Reflex to Direct LDL (10/23/2023 10:12 AM EDT) Triglycerides 62 <150 mg/dL [facility] Comment:Desirable Triglyceri de: less than 150 mg/dLBorderline High Triglyceride 150-199 mg/dLHigh Triglyceride: 200-499 mg/dLVery High Triglyceride: greater than or equal to 5OO mg/dL Cholesterol 190 <200 mg/dL [facility] Comment:Desirable Cholestero l: less than 200 mg/dLBorderline High Cholesterol: 200-239 mg/dLHigh Cholesterol: greater than 239 mg/dL LDL Cholesterol Calculated 113(H) <100 mg/dL [facility] Comment:Desirable LDL: less than 100 mg/dLNear Optimal/Above Optimal LDL: 110- 129 mg/dLBorderline High LDL: 130-159 mg/dLHigh LDL: 160-189 mg/dLVery High LDL: greater than or equal to 190 mg/dL HDL Cholesterol 65 >40 mg/dL [facility] Comment:Desirable HDL: great er than 40 mg/dL Note: This HDL assay may give artificially low results in patients with liver disease. Blood 10/23/2023 10:1 2 AM EDT 10/23/2023 11:20 AM EDT Jackie Butler MD LAB BLOOD ORDERABLES Final Resul t [facility] [address] [place] [phone] * Hepatitis C Antibody with Reflex to HCV, RNA, Quantitative, Real-Time PCR (10/23/2023 10:12 AM EDT) Hepatitis C Antibody Nonreactive Nonreactive [facility] Comment:Antibodies to HCV no t detected; does not exclude early acuteHCV infection. Blood Venous blood specimen / Unknown 10/23/2023 10:12 AM EDT 10/23/2023 11:20 AM EDT Jackie Butler MD LAB BLOOD ORDERABLES Final Resul t Performing Organization Address [facility] Co de Phone Number [facility] [address] [place] [phone] * Hemoglobin A1c (06/06/2023 12:24 PM EST) Hemoglobin A1c 5.8 <6.0 % [facility] Comment:Hemoglobin A1C Refer ence Range Adults: 4.8 - 6.0 % Non diabetic: < 6.0 % Goal: < 7.0 %Additional Action Suggested: > 8.0 %Note: Hemoglobin A1c results are invalid for patients with abnormal amounts of HbF. Blood transfusions may impact the HbA1c concentration in the patient sample. Estimated Average Glucose 120 mg/dL [facility] Comment:eAG = Estimated ave rage glucose which is %A1C expressed asaverage glucose, using the formula of the G0A-[id number] Glucose study (ADAG), Diabetes Care, Vol.31,#8,Feb. 2007 Blood Venous blood specimen / Unknown 06/06/2023 12:24 PM EST 06/06/2023 1:07 PM EST Jackie Butler MD LAB BLOOD ORDERABLES Final Resul t Performing Organization Address [facility] Co de Phone Number [facility] [address] [place] [phone] from Last 3 Months or Most Recently Relevant to Health Maintenance Insurance [facility] Care Teams System Support Technician Relationship Specialty Start Date End Date Jackie Butler MD [address] [place] [phone] PCP - General Family Medicine 07/16/18
--- OUTSIDE RECORDS SUMMARY | 2024-08-18 13:55 | XMS_ITS | Encounter Summary ---
Author Organization [employer] Address [address] [facility] 7[address] [place] [address] Care Team Providers Care Lead Embedded Software Engineer Name Role Phone Jackie Butler MD Primary Care Provider [phone] Reason for Visit * Reason Onset Date Comments Results 06/15/2023 Encounter Details Date Type Department Care Team ([facility] Contact Info) Description 06/15/2023 Telephone [facility] [address] [place], [place] [phone] Jackie Butler MD [address] [place], [place] [phone] Results Social History Tobacco Use Types Packs/Day Years Used Date Smoking Tobacco: Every Day Cigarettes Passive Smoke Exposure: Current Smokeless Tobacco: Never Housing Stability Answer Date Recorded What is your housing situation today? I have manjinder payne 04/30/[address] you li ve. Do you have problems with any of the following? None of the above 04/30/2023 Food Insecurity Answer Date Recorded Within the past 12 months, y ou worried that your food would run out before you got money to buy more: Never True 04/30/2023 Within the past 12 months,th e food you bought just didn't last and you didn't have enough money to get more: Never True Transportation Answer Date Recorded In the past 12 months, has l ack of transportation kept you from medical appts, meetings, work or from getting things needed for daily living? No 04/30/2023 Utilities Answer Date Recorded In the past 12 months, has t he electric, gas, oil or water company threatened to shut off services in your home? No 04/30/2023 Comments Unknown Sex and Gender Information Value Date Recorded Sex Assigned at Female 05/15/2022 10:17 AM EDT Legal Sex Female 10:17 AM EDT Gender Identity Female 05/15/2022 10:17 AM EDT Sexual Orientation Straight 05/15/2022 10 :17 AM EDT documented as of this encounter Miscellaneous Notes * Telephone Encounter - Jeff Martin - 06/15/2023 12:08 PM EST Tc from Saritha working with [facility] regarding lab results from 06/06/23. Any questions please contact Saritha at [phone] documented in this encounter Plan of Treatment Not on file documented as of this encounter Visit Diagnoses Not on filedocumented in this encounter Care Teams Lead Embedded Software Engineer Relationship Specialty Start Date End Date Jackie Butler MD [address] [place] [phone] PCP - General Family Medicine 07/16/18 documented as of this encounter
--- OUTSIDE RECORDS SUMMARY | 2024-08-18 13:55 | XMS_ITS | Encounter Summary ---
Author Organization [employer] Address [address] [place] [address] Care Team Providers Care Cathead Operator Name Role Phone Jackie Butler MD Primary Care Provider [phone] Reason for Visit * Reason Onset Date Comments chart prep 08/14/2024 Encounter Details Date Type Department Care Team ([facility] Contact Info) Description 08/14/2024 Telephone [facility] [address] [place], [place] [phone] Arina White MA chart prep Social History Tobacco Use Types Packs/Day Years [...] Answer Date Recorded Patient Health Questionnaire-9 Score 15 11/20/2023 Patient Health Questionnaire-9 Score 15 11/20/2023 Last PHQ-9: Questionnaire Data Not on file 0 11/20/2023 Housing Stability Answer Date Recorded What is [...] off services in your home? No 04/30/2023 Depression Answer Date Recorded Patient Health Questionnaire-2 Score 4 11/20/2023 Comments Unknown Sex and Gender Information Value Date Recorded Sex Assigned at Female 05/15/2022 10:17 AM EDT Legal Sex Female 10:17 AM EDT Gender Identity Female 05/15/2022 10:17 AM EDT Sexual Orientation Straight 05/15/2022 10 :17 AM EDT documented as of this encounter Miscellaneous Notes * Telephone Encounter - Arina White MA - 08/14/2024 1:47 PM EST .Chart Prep Labs: not done h pylori Images: not applicable Vaccines due: Covid Due and Flu Due Referrals: Completed Chris appointment 11/03/24 Screenings: Not Applicable Overdue care gaps: A1C, Glucose, SDOH, and PHQ-9 documented in this encounter Plan of Treatment Not on file documented as of this encounter Visit Diagnoses Not on filedocumented in this encounter Additional Health Concerns Assessment Noted Time PHQ-9 Depression Total Score: 15 024 8:36 AM EDT documented as of this encounter Care Teams Cathead Operator Relationship Specialty Start Date End Date Jackie Butler MD [address] [place] [phone] PCP - General Family Medicine 07/16/18 documented as of this encounter
--- OUTSIDE RECORDS SUMMARY | 2024-08-18 13:55 | XMS_ITS | Encounter Summary ---
Author Organization [employer] Address [address] [place] [address] Care Team Providers Care Insurance Salesperson Name Role Phone Jackie Butler MD Primary Care Provider [phone] Encounter Details Date Type Department Care Team (Latest Contact Info) Description 08/18/2024 Travel Social History Tobacco Use Types Packs/Day Years [...] AM EDT documented as of this encounter Plan of Treatment Not on file documented as of this encounter Visit Diagnoses Not on filedocumented in this encounter Additional Health Concerns Assessment Noted Time PHQ-9 Depression Total Score: 8 08/18/19 25 11:36 AM EST documented as of this encounter Care Teams Insurance Salesperson Relationship Specialty Start Date End Date Jackie Butler MD [address] [place] [phone] PCP - General Family Medicine 07/16/18 documented as of this encounter
--- OUTSIDE RECORDS SUMMARY | 2024-08-18 13:55 | XMS_ITS | Encounter Summary ---
Author Organization [employer] [facility] Address [address] [facility] 7[address] [place] [address] Care Team Providers Care Psychiatric Np Name Role Phone Jackie Butler MD Primary Care Provider [phone] Encounter Details Date Type Department Care Team (Late st Contact Info) Description 08/24/2022 Orders Only [facility] [address] [place], [place] [phone] Jackie Butler MD [address] [place], [place] [phone] Social History Tobacco Use Types Packs/Day Years Used Date Smoking Tobacco: Never Assessed Comments Unknown Sex and Gender Information Value Date Recorded Sex Assigned at Female 05/15/2022 10:17 AM EDT Legal Sex Female 10:17 AM EDT Gender Identity Female 05/15/2022 10:17 AM EDT Sexual Orientation Straight 05/15/2022 10 :17 AM EDT COVID-19 Exposure Response Date Recorded In the last 10 days, have yo u been in contact with someone who was confirmed or suspected to have Coronavirus/COVID-19? No / Unsure 08/23/2022 8:44 AM EST documented as of this encounter Plan of Treatment Not on file documented as of this encounter Visit Diagnoses Not on filedocumented in this encounter Care Teams Psychiatric Np Relationship Specialty Start Date End Date Jackie Butler MD [address] [place] [phone] PCP - General Family Medicine 07/16/18 documented as of this encounter
[2024-08-18 14:48] LABS: TSH reflex Free T4 0.21 uIU/mL (0.32-4.0)
[2024-08-18 14:57] LABS: Alanine Aminotransferase 9 U/L (0-31); Anion Gap 10 (12-20); Aspartate Amino Transferase 20 U/L (5-31); Bilirubin Total 0.3 mg/dL (0.0-1.0); Blood Urea Nitrogen 14 mg/dL (9-16); Calcium 10.1 mg/dL (8.4-10.2); Carbon Dioxide 25 mmol/L (22-29); Chloride 108 mmol/L (96-108); Cholesterol 292 mg/dL (<200); Estimated Glomerular Filt Rate > 60; Glucose Random 74 mg/dL (60-115); HDL Cholesterol 45 mg/dL (>40); LDL Cholesterol Calculated 213 mg/dL (<100); Potassium 3.6 mmol/L (3.3-5.1); Sodium 139 mmol/L (135-145); Total Protein 6.8 g/dL (6.5-8.0); Triglycerides 174 mg/dL (<150)
[2024-08-18 15:50] LABS: Alkaline Phosphatase 62 U/L (39-117)
[2024-08-18 15:59] LABS: Reflex LDLD? No
[2024-08-18 16:08] LABS: Free T4 (Free Thyroxine) 1.09 ng/dL (0.71-1.85)
[2024-08-18 17:07] LABS: Estimated Average Glucose 117 mg/dL; Hemoglobin A1C 131.4194 umol/L; Hemoglobin A1c % 5.7 % (<6.0); Total Hemoglobin (HGBA1C) 3401.0059 umol/L
== END 2024-08-18 12:37 | disposition home or self-care (01) ==
LOC: HO.HHCL 12:36
PROVIDERS: Visit Provider Family Medicine
DX: I10 Essential (primary) hypertension (principal); R73.03 Prediabetes; E78.5 Hyperlipidemia, unspecified
CPT/HCPCS: 36415; 80053; 80061; 83036; 84439; 84443

== ENCOUNTER 2024-09-30 10:23 | Outpatient (REF) | payer OTHER, SELFPAY ==
--- NOTE | ~2024-09-30 | US_ITS ---
CLINICAL HISTORY: Tender Cyst in RUQ, ruq abd mass US abdominal wall nonvascular Comparison: None Findings: Sonographic evaluation in the area of clinical concern right upper quadrant anterior abdominal wall showed no discrete solid or cystic mass shadowing hernia or calcifications Impression: No sonographic correlate to the area of clinical concern anterior abdominal wall right upper quadrant This document has been electronically signed by: Vishnu Al MD on 10/01/2024 23:04:27
--- OUTSIDE RECORDS SUMMARY | 2024-09-30 12:03 | XMS_ITS | Encounter Summary ---
Author Organization [facility] Address [address] [facility] 7t [place] [address] Care Team Providers Care Broadcast Producer Name Role Phone Jackie Butler MD Primary Care Provider [phone] Encounter Details Date Type Department Care Team (Late st Contact Info) Description 08/24/2022 Orders Only [facility] MEDICINE [address] [place] [address] [phone] Jackie Butler MD [address] [place] [phone] [phone] Social History Tobacco Use Types Packs/Day Years [...] as of this encounter Plan of Treatment Upcoming Encounters Date Type Department Care Team (Late st Contact Info) Description 11/25/2024 10:30 AM EDT Office Visit [facility] MEDICINE [address] [place] [address] [phone] Jackie Butler MD [address] [place] [address] [phone] documented as of this encounter Visit Diagnoses Not on filedocumented in this encounter Care Teams Broadcast Producer Relationship Specialty Start Date End Date Jackie Butler MD [address] [place] [address] PCP - General Family Medicine 07/16/18 documented as of this encounter
--- OUTSIDE RECORDS SUMMARY | 2024-09-30 12:03 | XMS_ITS | Encounter Summary ---
Author Organization [employer] Address [address] [address] [place] [address] Care Team Providers Care Clinical Case Manager Name Role Phone Jackie Butler MD Primary Care Provider [phone] Reason for Visit * Reason Comments Med Refill Encounter Details Date Type Department Care Team ([facility] st Contact Info) Description 09/27/2024 Refill [facility] MED & PEDS [address] [place], [place] [phone] Jackie Butler MD [address] [place] [phone] Essential hypertension; Asthma with COPD ([facility]) Social History Tobacco Use Types Packs/Day Years [...] Description 11/25/2024 10:30 AM EDT Office Visit [facility] MEDICINE [address] [place] [phone] Jackie Butler MD [address] [place] [phone] documented as of this encounter Visit Diagnoses Diagnosis Essential hypertension Unspecified essential hypertension Asthma with COPD ([facility]/HCC) documented in this encounter Additional Health Concerns Assessment Noted Time PHQ-9 Depression Total Score: 8 08/18/19 25 11:36 AM EST documented as of this encounter Care Teams Clinical Case Manager Relationship Specialty Start Date End Date Jackie Butler MD [address] [place] [phone] PCP - General Family Medicine 07/16/18 documented as of this encounter
--- OUTSIDE RECORDS SUMMARY | 2024-09-30 12:03 | XMS_ITS | Encounter Summary ---
Author Organization [employer] Address [address] [facility] [place] [address] Care Team Providers Care Etcher Electrolytic Name Role Phone Jackie Butler MD Primary Care Provider [phone] Reason for Visit * Reason Comments Med Refill Encounter Details Date Type Department Care Team ([facility] st Contact Info) Description 09/28/2024 Refill [facility] CH[facility] MED & PEDS [address] [place], [place] [phone] Jackie Butler MD [address] [place] [address] Cardiovascular event risk; Vitamin D deficiency; Gastroesophageal reflux disease, unspecified whether esophagitis present Social History Tobacco Use Types Packs/Day Years [...] Description 11/25/2024 10:30 AM EDT Office Visit [facility] MEDICINE [address] [place] [phone] Jackie Butler MD [address] [place] [phone] documented as of this encounter Visit Diagnoses Diagnosis Cardiovascular event risk Vitamin D deficiency Gastroesophageal reflux disease, unspecified whether esophagitis present documented in this encounter Additional Health Concerns Assessment Noted Time PHQ-9 Depression Total Score: 8 08/18/19 25 11:36 AM EST documented as of this encounter Care Teams Etcher Electrolytic Relationship Specialty Start Date End Date Jackie Butler MD [address] [place] [phone] PCP - General Family Medicine 07/16/18 documented as of this encounter
--- OUTSIDE RECORDS SUMMARY | 2024-09-30 12:04 | XMS_ITS | Encounter Summary ---
Author Organization [employer] Address [address] [facility] [address] [place] [address] Care Team Providers Care Diamond Wheel Edger Name Role Phone Jackie Butler MD Primary Care Provider [phone] Reason for Visit * Reason Onset Date Comments Results 06/15/2023 Encounter Details Date Type Department Care Team ([facility] Contact Info) Description 06/15/2023 Telephone [facility] MEDICINE [address] [place], [place] [phone] Jackie Butler MD [address] [place], [place] [phone] Results Social History Tobacco Use Types Packs/Day [...] PM EST Tc from Saritha working with [facility] regarding lab results from 06/06/23. Any questions please contact Saritha at [phone] documented in this encounter Plan of Treatment Upcoming Encounters Date Type Department Care Team (Late st Contact Info) Description 11/25/2024 10:30 AM EDT Office Visit [facility] MEDICINE [address] [place] [phone] Jackie Butler MD [address] [place] [phone] documented as of this encounter Visit Diagnoses Not on filedocumented in this encounter Care Teams Diamond Wheel Edger Relationship Specialty Start Date End Date Jackie Butler MD [address] [place] [phone] PCP - General Family Medicine 07/16/18 documented as of this encounter
--- OUTSIDE RECORDS SUMMARY | 2024-09-30 12:04 | XMS_ITS | Clinical Summary ---
Author Organization [employer] Address [address] [facility] [address] [place] [address] Care Team Providers Care Plaster Foreman Name Role Phone Jackie Butler MD Primary Care Provider [phone] Allergies Active Allergy Reactions Criticality Noted Date Comments Penicillins Hives 09/21/2010 [place] Extract 09/28/2015 Medications * This document contains [...] day 18 g 3 06/06/20 23 Active triamcinolone (Kenalog) 0.1 % ointment Apply to affected area thin layer once or twice daily. Apply immediately after shower / bath. 80 g 3 10/23/19 24 Active alendronate (Fosamax) 70 MG tabletIndicatio ns:Osteoporosis without current pathological fracture, unspecified osteoporosis type TAKE 1 TABLET BY MOUTH EVERY WEEK IN THE MORNING AT LEAST 30 MINUTES BEFORE FIRST FOOD, BEVERAGE, OR MED OF THE DAY 12 tablet 1 01/23/20 24 Active rosuvastatin (Crestor) 40 MG tabletIndicatio ns:Cardiovascul ar event risk Take 1 tablet by mouth daily at bedtime 90 tablet 3 08/21/19 25 Active loratadine (Claritin) 10 MG tablet TAKE 1 TABLET BY MOUTH EVERY DAY 90 tablet 1 08/27/19 25 Active hydroCHLOROthia zide (HYDRODiuril) 25 MG tabletIndicatio ns:Essential hypertension TAKE 1 TABLET BY MOUTH EVERY DAY 90 tablet 3 09/30/19 25 Active montelukast (Singulair) 10 MG tabletIndicatio ns:Asthma with COPD (CMS/HCC) TAKE 1 TABLET BY MOUTH EVERY DAY IN THE EVENING 90 tablet 3 09/30/19 25 Active lisinopril 20 MG tabletIndicatio ns:Essential hypertension TAKE 1 TABLET BY MOUTH EVERY DAY 90 tablet 3 09/30/19 25 Active aspirin (Aspirin Low Dose) 81 MG EC tabletIndicatio ns:Cardiovascul ar event risk TAKE 1 TABLET BY MOUTH EVERY DAY 90 tablet 3 09/30/19 25 Active cholecalciferol (D3-1000) 25 MCG (1000 UT) capsuleIndicati ons:Vitamin D deficiency TAKE 1 CAPSULE BY MOUTH EVERY DAY 90 capsule 3 09/30/19 25 Active omeprazole (PriLOSEC) [address] capsuleIndicati ons:Gastroesoph ageal reflux disease, unspecified whether esophagitis present TAKE 1 CAPSULE BY MOUTH DAILY BEFORE A MEAL 90 capsule 3 09/30/19 25 Active hydroCHLOROthia zide (HYDRODiuril) 25 MG tabletIndicatio ns:Essential hypertension TAKE 1 TABLET BY MOUTH DAILY 90 tablet 3 08/13/19 24 025 Discontinued cholecalciferol (D3-1000) 25 MCG (1000 UT) capsuleIndicati ons:Vitamin D deficiency TAKE 1 CAPSULE BY MOUTH DAILY 90 capsule 3 08/13/19 24 025 Discontinued lisinopril 20 MG tabletIndicatio ns:Essential hypertension TAKE 1 TABLET BY MOUTH DAILY 90 tablet 3 08/13/19 24 025 Discontinued aspirin (Aspirin Low Dose) 81 MG EC tabletIndicatio ns:Cardiovascul ar event risk TAKE 1 TABLET BY MOUTH DAILY 90 tablet 3 08/13/19 24 025 Discontinued montelukast (Singulair) 10 MG tabletIndicatio ns:Asthma with COPD (CMS/HCC) TAKE 1 TABLET BY MOUTH EVERY EVENING 90 tablet 3 08/13/19 24 025 Discontinued omeprazole (PriLOSEC) [address] capsuleIndicati ons:Gastroesoph ageal reflux disease, unspecified whether esophagitis present TAKE 1 CAPSULE BY MOUTH DAILY BEFORE A MEAL 90 capsule 1 03/28/20 24 025 Discontinued Active Problems Problem Noted Date Diagnosed Date [...] (08/18/2024 12:17 PM EST): - seen by data entry specialist and recommended to use hearing aids Assessment & Plan (08/12/2023 11:31 AM EST): - seen by data entry specialist and recommended to use hearing aids Assessment & Plan (06/06/2023 1:08 PM EST): - seen by data entry specialist and recommended to use hearing aids - [...] adenopathy -repeat CT scan -refer back to securities broker Tobacco dependence 08/23/2022 Assessment & Plan (08/18/2024 [...] -previously followed by Dr. Vaughn and Dr. Ttaum -pt requests a referral to new ENT and rehabilitation construction specialist Assessment & Plan (11/21/2022 12:16 PM EDT): -previously followed by Dr. Vaughn and Dr. Tatum -pt requests a referral to new ENT and rehabilitation construction specialist Assessment & Plan (09/02/2022 5:46 AM EST): -previously followed by Dr. Vaughn and Dr. Tatum -pt requests a referral to new ENT and rehabilitation construction specialist Colon cancer screening 08/23/2022 Assessment & Plan (04/21/2024 6:07 AM EDT): - Seen by [facility] on 08/18/21 and scheduled for colonoscopy in October 2021. - Patient did not have a colonoscopy as scheduled, and was re-referred - patient now requested stool test - cologuard is ordered again Assessment & Plan (10/23/2023 9:49 AM EDT): - Seen by [facility] on 08/18/21 and scheduled for colonoscopy in October 2021. - Patient did not have a colonoscopy as scheduled, and was re-referred - patient now requests stool test - cologuard is ordered Assessment & Plan (08/12/2023 11:32 AM EST): Pt was seen by [facility] on 08/18/21. -Scheduled for colonoscopy in October 2021. -Pt did not have a colonoscopy as scheduled, will check its status Assessment & Plan (06/06/2023 1:09 PM EST): Pt was seen by [facility] on 08/18/21. -Scheduled for colonoscopy in October 2021. -Pt did not have a colonoscopy as scheduled, will check its status Assessment & Plan (11/21/2022 12:30 PM EDT): Pt was seen by [facility] on 08/18/21. -Scheduled for colonoscopy in October 2021. -Pt did not have a colonoscopy as scheduled, will check its status Assessment & Plan (09/02/2022 5:45 AM EST): Pt was seen by [facility] on 08/18/21. -Scheduled for colonoscopy in October [...] > 15 years -previously seen by [facility] clinician -Patient seeking in-person counseling Assessment & Plan (04/15/2024 8:12 AM EDT): - Hx Diagnosis of bipolar disorder. - Previous medication: Depakote, but patient discontinued (unclear when it was started and if it was for Hx seizure disorder, no seizure > 15 years -previously seen by [facility] clinician -Patient started in-person counseling since May 2020 Assessment & Plan (08/12/2023 11:31 AM EST): - Hx Diagnosis of bipolar disorder. - Previous medication: Depakote, but patient discontinued (unclear when it was started and if it was for Hx seizure disorder, no seizure > 15 years -previously seen by [facility] clinician -Patient started in-person counseling since May 2020 Assessment & Plan (11/21/2022 12:20 PM EDT): Hx Diagnosis of bipolar disorder. Previous medication: Depakote -previously seen by [facility] clinician -Patient started in-person counseling since May 2020 -Patient declined to take depakote, agreed to discontinue Assessment & Plan (08/23/2022 9:00 AM EST): Hx Diagnosis of bipolar disorder. Previous medication: Depakote -previously seen by [facility] clinician -Patient started in-person counseling since May 2020 -agreed to restart Depakote for her history of bipolar disorder in May 2020 -continue Depakote at this time Asthma with COPD 02/29/2012 Assessment & Plan (08/18/2024 9:58 PM EST): - Transplant Worker: Dr. Polanco, seen on 09/27/22 - Maintenance: Previously fluticasone - salmeterol / 500- 50 mcg one puff bid; montelukast 10 mg at bedtime. Consider switching to budesonide / formoterol (Symbicort). - Rescue: Albuterol HFA prn (consider switching to budesonide / formoterol (Symbicort). ) - Last exacerbation, Today, Apr 2024. Outpatient treatment with prednisone burst 5 days and azithromycin. - Last CT on 11/14/23 Lung RADS 2. Mild emphysema. ; stable nodules; recommended repeat CT scan in 1-year - continue working on smoking cessation - Follow up in 3 mo or sooner prn Assessment & Plan (04/21/2024 6:03 AM EDT): - Transplant Worker: Dr. Polanco, seen on 09/27/22 - Maintenance: [...] & Plan (01/13/2024 11:47 AM EDT): - Transplant Worker: Dr. Polanco, seen on 09/27/22 - Maintenance: [...] & Plan (10/22/2023 9:48 PM EDT): - Transplant Worker: Dr. Polanco, seen on 09/27/22 - Maintenance: [...] & Plan (08/12/2023 11:19 AM EST): - Transplant Worker: Dr. Polanco, seen on 09/27/22 - Maintenance: [...] & Plan (06/06/2023 1:05 PM EST): - Transplant Worker: Dr. Polanco, seen on 09/27/22 - Maintenance: [...] & Plan (01/25/2023 11:45 AM EDT): - Transplant Worker: Dr. Polanco, seen on 09/27/22 - Maintenance: [...] & Plan (11/24/2022 5:40 PM EDT): - Transplant Worker: Dr. Polanco, recently seen. - Maintenance: Previously [...] Assessment & Plan (08/23/2022 8:55 AM EST): -Transplant Worker: Dr. Polanco, resumed care since 08/2019. -Maintenance: [...] 27 between II and IIIa seen by NephrologyDr. Hawley on 09/12/19. avoid nephrotoxic drugs Sarcoidosis 02/29/2012 Assessment & Plan (08/18/2024 12:16 PM EST): - patient had not had an appointment with specialist for a while - recently seen by Dr. Xiao, [facility] [employer], in November 2023 - she had lung CT as a part of lung cancer screening which showed no mediastinal lymphadenopathy and stable nodule - patient has reticularis livedo and lately feeling sick, more frequent infection and had Shingles. Assessment & Plan (04/21/2024 6:06 AM EDT): - patient had not had an appointment with specialist for a while - recently seen by Dr. Xiao, [facility] [employer], in November 2023 - she had lung [...] had Shingles. Will check lab. Refer to spinning lathe operator automatic for their recommendation on management Assessment & [...] recommended. Hypertension 02/29/2012 Assessment & Plan (08/18/2024 10:05 PM EST): -Goal BP < 150/90 per JNC-8, < 130/80 per ACC/AHA guideline -BP at goal today -Continue working on lifestyle [...] Encounters Date Type Department Care Team Description 09/28/2024 Refill [facility] [address] [facility] [place] [address] Jackie Butler MD Cardiovascular event risk; Vitamin D deficiency; Gastroesophageal reflux disease, unspecified whether esophagitis present 09/27/2024 Refill [facility] [address] [place] [address] Jackie Butler MD Essential hypertension; Asthma with COPD ([facility]) 08/26/2024 Refill [facility] [address] [place] [address] Jackie Butler MD 08/21/[address] [address] Brittnee Mckeon RN Cardiovascular event risk 08/18/2024 11:15 AM EST Office Visit [address] [address] Jackie Butler MD Asthma with COPD (CMS/HCC) (Primary Dx); Lung nodules; Primary hypertension; Osteoporosis without current pathological fracture, unspecified osteoporosis type; Sarcoidosis; Tobacco dependence; Smoking greater than 20 pack years; Sensorineural hearing loss (SNHL) of both ears; Moderate major depression (CMS/HCC); Allergic rhinitis, unspecified seasonality, unspecified trigger; Primary osteoarthritis of both knees; Prediabetes; Dyslipidemia; Encounter for immunization; RUQ abdominal mass; Screening for colon cancer 08/18/2024 Orders Only [address] [address] Jackie Butler MD 08/18/2024 Travel 08/14/[address] [address] Arina White MA chart prep 07/03/[address] [address] Arina White MA chart prep from Last [...] 04/14/2024 11:15 AM EDT Plan of Treatment Upcoming Encounters Date Type Department Care Team (Late st Contact Info) Description 11/25/2024 10:30 AM EDT Office Visit [facility] [address] [place] [address] Jackie Butler MD [address] [place] [address] Health Maintenance Due Date Last Done Comments CT Colonography 1950 Colonoscopy 1950 Colorectal Cancer Screening 1950 FIT DNA/Cologuard 1950 FIT 1950 FOBT 1950 Sigmoidoscopy 1950 COVID-19 Vaccine ( season) 2024 Alcohol/Substance Use Screening 01/13/2025 01/14/2024 Depression Screening 08/18/2025 08/18/2024, 08/18/19 Diabetes: Hemoglobin A1C 08/18/2025 025, 06/06/2023, 08/23/2022, Additional history exists SDOH Screening 08/18/2025 08/18/2024 Tobacco Screening 08/18/2025 08/18/2024 Mammogram 11/01/2025 11/02/2023, 09/13, 09/27/2021, Additional history exists Lipid Panel 08/18/2029 08/18/2024, 04/0 03/2024, 06/06/2023, Additional history exists DTaP/Tdap/Td Vaccines (3 - Td or Tdap) 01/25/2033 01/25/2023, 12/25/2011, 11/22/2006 Pneumococcal Vaccine: 50+ Years Completed 09/30/2018, 08/06/2017, 12/25/2011 RSV Patients and Patients Aged 60 years or older Completed 08/06/2023 Zoster Vaccines Completed 08/06/2023, 01/13, 08/06/2017 Hepatitis C Screening Completed 10/23/2023, 023 Hepatitis A Vaccines Aged Out 08/18/2024, 01/14/20 24 No longer eligible based on patient's age to complete this topic Influenza Vaccine Completed 08/18/2024, , 06/16/2021, Additional [...] Procedure Name Priority Date/Time Associated Diagnosis Comments T4, FREE Routine 08/18/2024 12:38 PM EST LIPID PANEL WITH REFLEX TO DIRECT LDL Routine 08/18/2024 12:38 PM EST Dyslipidemia COMPREHENSIVE METABOLIC PANEL Routine 08/18/2024 12:38 PM EST Primary hypertension HEMOGLOBIN A1C Routine 08/18/2024 12:38 PM EST Prediabetes TSH W/REFLEX TO FT4 Routine 08/18/2024 1 2:38 PM EST Primary hypertension BI MAMMOGRAM SCREENING TOMOSYNTHESIS BILATERAL Routine 11/02/2023 3:20 PM EDT HEPATITIS C AB W/REFL TO HCV RNA, QN, PCR Routine 10/23/2023 10:12 AM EDT Sarcoidosis from Last 3 Months or Most Recently Relevant to Health Maintenance Results * (ABNORMAL) TSH with Reflex to Free T4 (08/18/2024 12:38 PM EST) TSH reflex Free T4 0.21(L) 0.32 - 4.0 uIU/mL [facility] Blood 08/18/2024 12:3 8 PM EST 08/18/2024 1:19 PM EST us Jackie Butler MD LAB BLOOD ORDERABLES Final Resul t [facility] [address] [place] [phone] * (ABNORMAL) Lipid Panel with Reflex to Direct LDL (08/18/2024 12:38 PM EST) Triglycerides 174(H) <150 mg/dL [facility] Comment:Desirable Triglyceri de: less than 150 mg/dLBorderline High Triglyceride 150-199 mg/dLHigh Triglyceride: 200-499 mg/dLVery High Triglyceride: greater than or equal to 5OO mg/dL Cholesterol 292(H) <200 mg/dL [facility] Comment:Desirable Cholestero l: less than 200 mg/dLBorderline High Cholesterol: 200-239 mg/dLHigh Cholesterol: greater than 239 mg/dL LDL Cholesterol Calculated 213(H) <100 mg/dL [facility] Comment:Desirable LDL: less than 100 mg/dLNear Optimal/Above Optimal LDL: 110- 129 mg/dLBorderline High LDL: 130-159 mg/dLHigh LDL: 160-189 mg/dLVery High LDL: greater than or equal to 190 mg/dL HDL Cholesterol 45 >40 mg/dL [facility] Comment:Desirable HDL: great er than 40 mg/dL Note: This HDL assay may give artificially low results in patients with liver disease. Blood 08/18/2024 12:3 8 PM EST 08/18/2024 1:19 PM EST Jackie Butler MD LAB BLOOD ORDERABLES Final Resul t Performing Organization Address [facility] Co de Phone Number [facility] [address] [place] [phone] * T4, Free (08/18/2024 12:38 PM EST) Free T4 (Free Thyroxine) 1.09 0.71 - 1.85 ng/dL [facility] 08/18/2024 12:3 8 PM EST 08/18/2024 1:19 PM EST Jackie Butler MD LAB BLOOD ORDERABLES Final Resul t Performing Organization Address [facility] Co de Phone Number [facility] [address] [place] [phone] * Hemoglobin A1c (08/18/2024 12:38 PM EST) Hemoglobin A1c 5.7 <6.0 % [facility] Comment:Hemoglobin A1C Refer ence Range Adults: 4.8 - 6.0 % Non diabetic: < 6.0 % Goal: < 7.0 %Additional Action Suggested: > 8.0 %Note: Hemoglobin A1c results are invalid for patients with abnormal amounts of HbF. Blood transfusions may impact the HbA1c concentration in the patient sample. Estimated Average Glucose 117 mg/dL [facility] Comment:eAG = Estimated ave rage glucose which is %A1C expressed asaverage glucose, using the formula of the [id number] Glucose study (ADAG), Diabetes Care, Vol.31,#8,2007 Blood Venous blood specimen / Unknown 08/18/2024 12:38 PM EST 08/18/2024 1:19 PM EST us Jackie Butler MD LAB BLOOD ORDERABLES Final Resul t Performing Organization Address City/[facility]/ZIP Co de Phone Number [facility] [address] [place] [phone] * (ABNORMAL) Comprehensive Metabolic Panel (08/18/2024 12:38 PM EST) Sodium 139 135 - 145 mmol/L [facility] Potassium 3.6 3.3 - 5.1 mmol/L [facility] Chloride 108 96 - 108 mmol/L [facility] Carbon Dioxide 25 22 - 29 mmol/L [facility] Anion Gap 10(L) 12 - 20 [facility] Urea Nitrogen (BUN) 14 9 - 16 mg/dL [facility] Creatinine, Serum 0.88 0.5 - 1.4 mg/dL [facility] Estimated Glomerular Filt Rate >60 [facility] Comment:Chronic Kidney Disea se: Estimated GFR < 60 mL/min/[id number] Kidney Disease: Estimated GFR < 15 mL/min/1.73m2 Glucose 74 60 - 115 mg/dL [facility] Calcium 10.1 8.4 - 10.2 mg/dL [facility] Bilirubin, Total 0.3 0.0 - 1.0 mg/dL [facility] Aspartate Amino Transferase 20 5 - 31 U/L [facility] Alanine Aminotransferase 9 0 - 31 U/L [facility] Total Protein 6.8 6.5 - 8.0 g/dL [facility] Albumin Level 4.0 3.5 - 5.0 g/dL [facility] Alkaline Phosphatase 62 39 - 117 U/L [facility] Blood Venous blood specimen / Unknown 08/18/2024 12:38 PM EST 08/18/2024 1:19 PM EST us Jackie Butler MD LAB BLOOD ORDERABLES Final Resul t Performing Organization Address City/[facility]/ZIP Co de Phone Number [facility] [address] [place] [phone] * BI Mammogram Screening Tomosynthesis Bilateral (11/02/2023 3:20 PM EDT) Anatomical Region Laterality Modality Breast Bilateral Mammography 11/02/2023 3:20 PM EDT Narrative 12/03/2023 4:12 AM EDT ? [facility] ? [address] ?[place] [address] ? Mammography Report ? Signed ? Patient: Earline Mcduffie ?MR#: [id number] ?? [id number] ? : 1950 ?Acct:[id number] ? Age/Sex: 73 / F ?ADM Date: 11/02/23 ? Loc: HO.MAMMO ? Attending Dr: Jackie Butler MD ? Ordering Physician: Jackie Butler MD ?Results: 1Negative ? Date of Service: 11/02/23 ?Follow Up: 1 Year From Orig ?? inal Mammogram ? Procedure(s): MM tomosynthesis screening BI ?? Accession Number(s): [id number] ? cc: Jackie Butler MD ? EXAMINATION: [...] by Kimber Smith MD in OV> ? 12/03/238 ? DD/ 1520 ? TD/TT: ? Active Directory Engineer: ? Procedure Note Rajat [place] - 12/03/2023 [facility] [address] [place] [address] Mammography Report Signed Patient: Earline Mcduffie TMR#: [id number] : 2Acct:[id number] Age/Sex: 73 / FADM Date: 11/02/23 Loc: [facility] Attending Dr: Jackie Butler MD Ordering Physician: Jackie Butler MDResults: 1Negative Date of Service: 11/02/23Follow Up: 1 Year From Orig inal Mammogram Procedure(s): MM tomosynthesis screening BI Accession Number(s): [id number] cc: Jackie Butler MD EXAMINATION: MM SCREENING [...] in OV> 12/03/23 0408 DD/ 1520 TD/TT: Active Directory Engineer: Jackie Butler MD IMG BI PROCEDURES Edited Result - Final * Hepatitis C Antibody with Reflex to HCV, RNA, Quantitative, Real-Time PCR (10/23/2023 10:12 AM EDT) Hepatitis C Antibody Nonreactive Nonreactive [facility] Comment:Antibodies to HCV no t detected; does not exclude early acuteHCV infection. Blood Venous blood specimen / Unknown 10/23/2023 10:12 AM EDT 10/23/2023 11:20 AM EDT Jackie Butler MD LAB BLOOD ORDERABLES Final Resul t [facility] [address], [place] [phone] from Last 3 Months or Most Recently Relevant to Health Maintenance Insurance [employer] Care Teams Plaster Foreman Relationship Specialty Start Date End Date Jackie Butler MD [address] [place] [phone] PCP - General Family Medicine 07/16/18
== END 2024-09-30 10:24 | disposition home or self-care (01) ==
LOC: HO.US 10:23
PROVIDERS: PCP Family Medicine; Visit Provider Family Medicine
DX: R19.01 Right upper quadrant abdominal swelling, mass and lump (principal)
CPT/HCPCS: 76705

== ENCOUNTER → 2024-09-30 10:26 | Outpatient (BNV) | payer OTHER, SELFPAY | PROVIDERS: PCP Family Medicine; Visit Provider Radiology Diagnostic Radiology | DX: R19.01 Right upper quadrant abdominal swelling, mass and lump (principal) | CPT/HCPCS: 76705 ==

== ENCOUNTER 2024-11-25 11:32 | Outpatient (REF) | payer OTHER, SELFPAY ==
--- OUTSIDE RECORDS SUMMARY | 2024-11-25 13:03 | XMS_ITS | Encounter Summary ---
Author Organization [employer] Address [address] [facility] 7t [place] [address] Care Team Providers Care Truck Service Manager Name Role Phone Jackie Butler MD Primary Care Provider [phone] Reason for Visit * Reason Onset Date Comments Results 06/15/2023 Encounter Details Date Type Department Care Team ([facility] Contact Info) Description 06/15/2023 Telephone [facility] [address] [place], [place] [phone] Jackie Butler MD [address] [place], [place] [phone] Results Social History Tobacco Use Types Packs/Day [...] PM EST Tc from Saritha working with [facility] regarding lab results from 06/06/23. Any questions please contact Saritha at [phone] documented in this encounter Plan of Treatment Not on file documented as of this encounter Visit Diagnoses Not on filedocumented in this encounter Care Teams Truck Service Manager Relationship Specialty Start Date End Date Jackie Butler MD [address] [place] [phone] PCP - General Family Medicine 07/16/18 documented as of this encounter
--- OUTSIDE RECORDS SUMMARY | 2024-11-25 13:03 | XMS_ITS | Encounter Summary ---
Author Organization [employer] Address [address] [facility] 7t [place] [address] Care Team Providers Care Behavioral Psychologist Name Role Phone Jackie Butler MD Primary Care Provider [phone] Encounter Details Date Type Department Care Team (Late st Contact Info) Description 08/24/2022 Orders Only [facility] [address] [place], [place] [phone] Jackie Butler MD [address] [place], [place] [phone] Social History Tobacco Use Types Packs/Day Years [...] on filedocumented in this encounter Care Teams Behavioral Psychologist Relationship Specialty Start Date End Date Jackie Butler MD [address] [place], [place] [phone] PCP - General Family Medicine 07/16/18 documented as of this encounter
--- OUTSIDE RECORDS SUMMARY | 2024-11-25 13:03 | XMS_ITS | Encounter Summary ---
Author Organization [employer] Address [address] [facility] [address] [place] [address] Care Team Providers Care Engravings Polisher Name Role Phone Jackie Butler MD Primary Care Provider [phone] Encounter Details Date Type Department Care Team ([facility] st Contact Info) Description 11/25/2024 10:30 AM EDT Office Visit [facility] [address] [place], [place] [phone] Jackie Butler MD [address] [place], [place] [phone] Primary hypertension (Primary Dx); Asthma with COPD ([facility]/HCC); Osteoporosis without current pathological fracture, unspecified osteoporosis type; Prediabetes; Dyslipidemia; Tobacco dependence; Smoking greater than 20 pack years; Weight loss; Right lower quadrant abdominal mass Social History Tobacco Use Types Packs/Day Years [...] Date Recorded Patient Health Questionnaire-9 Score 15 11/25/2024 Patient Health Questionnaire-9 Score 15 11/25/2024 Last PHQ-9: Questionnaire Data Not on file 0 11/25/2024 Housing Stability Answer Date Recorded What is [...] Answer Date Recorded Patient Health Questionnaire-2 Score 6 11/25/2024 Internet Access Answer Date Recorded Internet Access Q1 Yes 08/18/2024 Internet Access Q2 Not on file 08/18/2024 Comments No Sex and Gender Information Value Date Recorded Sex Assigned at Female 05/15/2022 10:17 AM EDT Legal Sex Female 10:17 AM EDT Gender Identity Female 05/15/2022 10:17 AM EDT Sexual Orientation Straight 05/15/2022 10 :17 AM EDT documented as of this encounter Last Filed Vital Signs Vital Sign Reading Time Taken Comments Blood Pressure 131/75 11/25/2024 10:55 AM EDT Pulse 77 11/25/2024 10:55 AM EDT Temperature 36.2 ??C (97.1 ??F) 11/25/2024 1 0:55 AM EDT Respiratory Rate 20 11/25/2024 10:5 5 AM EDT Oxygen Saturation 96% 11/25/2024 10: 55 AM EDT Inhaled Oxygen Concentration - - Weight 57.1 kg (125 lb 12.8 oz) 025 10:55 AM EDT Height 162.6 cm (5' 4 ) 11/25/2024 10:5 5 AM EDT Body Mass Index 21.59 11/25/2024 10:55 AM EDT documented in this encounter Miscellaneous Notes * Assessment & Plan Note - Carina Lima MA - 11/25/2024 9:06 AM EDTAssociated Problem(s): Smoking greater than 20 pack years - pt reports being three weeks smoke free - low dose lung cancer screening CT in November 2023 Lung RADS 2 at [facility] - repeat CT in 1 year * Assessment & Plan Note - Carina Lima MA - 11/25/2024 9:06 AM EDTAssociated Problem(s): Tobacco dependence Continue working on smoking cessation Continue lung cancer screening * Assessment & Plan Note - Carina Lima MA - 11/25/2024 9:06 AM EDTAssociated Problem(s): Dyslipidemia Current medication: Rosuvastatin 40 mg at bedtime Last lipid profile: 06/06/23 TC 289; TG 102; HDL 52; LDL 216 Encourage her to improve adherence to medication and lifestyle modification May need to change to Atorvastatin if her renal function declines. According to ACC/AHA guideline, high-intensity statin therapy is recommended. * Assessment & Plan Note - Carina Lima MA - 11/25/2024 9:05 AM EDTAssociated Problem(s): Prediabetes -06/06/23 A1C 5.8% * Assessment & Plan Note - Carina Lima MA - 11/25/2024 9:05 AM EDTAssociated Problem(s): Osteoporosis -09/27/21 DEXA The lowest T-score -2.5 in lumbar spine -10/26/23 DEXA The lowest T-score -3.1 in femur -Risk factors: smoking, occasional use of steroid for asthma and knee OA -Continue alendronate, started in 2021 -Continue weight-bearing exercise -Repeat DEXA in 1-2 years * Assessment & Plan Note - Carina Lima MA - 11/25/2024 9:05 AM EDTAssociated Problem(s): Hypertension -Goal BP < 150/90 per [...] CDTM. * Assessment & Plan Note - Carina Lima MA - 11/25/2024 9:04 AM EDTAssociated Problem(s): Asthma with COPD ([facility]) - Developmental Education Instructor: Dr. Polanco, seen on 09/27/22 - Maintenance: Previously fluticasone - salmeterol / 500- 50 mcg one puff bid; montelukast 10 mg atbedtime. Consider switching to budesonide / formoterol (Symbicort). [...] Type Priority Associated Diagnoses Orde r Schedule CBC auto differential Lab Routine Weight loss Expected: 11/25/2024 (Approximate), Expires: 11/25/2025 Comprehensive Metabolic Panel Lab Routine Primary hypertension Dyslipidemia Weight loss Expected: 11/25/2024 (Approximate), Expires: 11/25/2025 Lipid Panel with Reflex to Direct LDL Lab Routine Dyslipidemia Expected: 11/25/2024 (Approximate), Expires: 11/25/2025 TSH with Reflex to Free T4 Lab Routine Weight loss Expected: 11/25/2024 (Approximate), Expires: 11/25/2025 documented as of this encounter Visit Diagnoses Diagnosis Primary hypertension- Primary Unspecified essential hypertension Asthma with COPD ([facility]) Osteoporosis without current pathological fracture, unspecified osteoporosis type Prediabetes Other abnormal glucose Dyslipidemia Other and unspecified hyperlipidemia Tobacco dependence Tobacco use disorder Smoking greater than 20 pack years Weight loss Loss of weight Right lower quadrant abdominal mass Abdominal or pelvic swelling, mass, or lump, right lower quadrant documented in this encounter Additional Health Concerns Assessment Noted Time PHQ-9 Depression Total Score: 15 025 11:35 AM EDT documented as of this encounter Care Teams Engravings Polisher Relationship Specialty Start Date End Date Jackie Butler MD [address] [place] [id number] PCP - General Family Medicine 07/16/18 documented as of this encounter
--- OUTSIDE RECORDS SUMMARY | 2024-11-25 13:03 | XMS_ITS | Clinical Summary ---
Author Organization [employer] Address [address] [facility] 7[address] [place] [address] Care Team Providers Care Manager Neonatal Name Role Phone Jackie Butler MD Primary Care Provider Allergies Active Allergy Reactions Criticality Noted Date Comments Penicillins Hives 09/21/2010 Sperry Extract 09/28/2015 Medications * This document contains information received from the source organization and may not represent a complete record from that organization. Fluticasone-Salm eterol (Wixela Inhub) 500-50 MCG/ACT aerosol powder 2 Active gabapentin (Neurontin) 300 MG capsule Take 1 capsule by mouth at bedtime, may increase to bid if pain relief is inadequate 60 capsule 3 3 Active albuterol 108 (90 Base) MCG/ACT inhaler Inhale 2 puffs every 4 (four) hours if needed for wheezing or shortness of breath. Maximum 8 puffs per day 18 g 3 3 Active triamcinolone (Kenalog) 0.1 % ointment Apply to affected area thin layer once or twice daily. Apply immediately after shower / bath. 80 g 3 4 Active alendronate (Fosamax) 70 MG tabletIndication s:Osteoporosis without current pathological fracture, unspecified osteoporosis type TAKE 1 TABLET BY MOUTH EVERY WEEK IN THE MORNING AT LEAST 30 MINUTES BEFORE FIRST FOOD, BEVERAGE, OR MED OF THE DAY 12 tablet 1 4 Active rosuvastatin (Crestor) 40 MG tabletIndication s:Cardiovascular event risk Take 1 tablet by mouth daily at bedtime 90 tablet 3 5 Active loratadine (Claritin) 10 MG tablet TAKE 1 TABLET BY MOUTH EVERY DAY 90 tablet 1 5 Active hydroCHLOROthiaz robbie (HYDRODiuril) 25 MG tabletIndication s:Essential hypertension TAKE 1 TABLET BY MOUTH EVERY DAY 90 tablet 3 5 Active montelukast (Singulair) 10 MG tabletIndication s:Asthma with COPD (CMS/HCC) TAKE 1 TABLET BY MOUTH EVERY DAY IN THE EVENING 90 tablet 3 5 Active lisinopril 20 MG tabletIndication s:Essential hypertension TAKE 1 TABLET BY MOUTH EVERY DAY 90 tablet 3 5 Active aspirin (Aspirin Low Dose) 81 MG EC tabletIndication s:Cardiovascular event risk TAKE 1 TABLET BY MOUTH EVERY DAY 90 tablet 3 5 Active cholecalciferol (D3-1000) 25 MCG (1000 UT) capsuleIndicatio ns:Vitamin D deficiency TAKE 1 CAPSULE BY MOUTH EVERY DAY 90 capsule 3 5 Active omeprazole (PriLOSEC) [address] capsuleIndicatio ns:Gastroesophag eal reflux disease, unspecified whether esophagitis present TAKE 1 CAPSULE BY MOUTH DAILY BEFORE A MEAL 90 capsule 3 5 Active Active Problems Problem Noted Date Diagnosed Date Right lower quadrant abdominal mass 11/25/2024 TRACY (generalized anxiety disorder) 10/24/2023 Smoking greater than 20 pack years 10/23/2023 Assessment & Plan (11/25/2024 9:06 AM EDT): - pt reports being three weeks smoke free - low dose lung cancer screening CT in November 2023 Lung RADS 2 at [facility] - repeat CT in 1 year Assessment & Plan (08/18/2024 12:17 PM EST): [...] (08/18/2024 12:17 PM EST): - seen by turn sewer and recommended to use hearing aids Assessment & Plan (08/12/2023 11:31 AM EST): - seen by turn sewer and recommended to use hearing aids Assessment & Plan (06/06/2023 1:08 PM EST): - seen by turn sewer and recommended to use hearing aids - [...] Physical Therapy Osteoporosis 09/02/2022 Assessment & Plan (11/25/2024 9:05 AM EDT): -09/27/21 DEXA The lowest T-score -2.5 in lumbar spine -10/26/23 DEXA The lowest T-score -3.1 in femur -Risk factors: smoking, occasional use of steroid for asthma and knee OA -Continue alendronate, started in 2021 -Continue weight-bearing exercise -Repeat DEXA in 1-2 years Assessment & Plan (08/18/2024 12:15 PM EST): [...] adenopathy -repeat CT scan -refer back to card puncher Tobacco dependence 08/23/2022 Assessment & Plan (11/25/2024 9:06 AM EDT): Continue working on smoking cessation Continue lung cancer screening Assessment & Plan (08/18/2024 12:18 PM EST): [...] requests a referral to new ENT and marine cargo specialist Assessment & Plan (11/21/2022 12:16 PM EDT): -previously followed by Dr. Vaughn and Dr. Tatum -pt requests a referral to new ENT and marine cargo specialist Assessment & Plan (09/02/2022 5:46 AM EST): -previously followed by Dr. Vaughn and Dr. Tatum -pt requests a referral to new ENT and marine cargo specialist Colon cancer screening 08/23/2022 Assessment & Plan (04/21/2024 6:07 AM EDT): - Seen by [facility] on 08/18/21 and scheduled for colonoscopy in October 2021. - Patient did not have a colonoscopy as scheduled, and was re-referred - patient now requested stool test - cologuard is ordered again Assessment & Plan (10/23/2023 9:49 AM EDT): - Seen by [facility] on 08/18/21 and scheduled for colonoscopy in October 2021. - Patient did not have a colonoscopy as scheduled, and was re-referred - patient now requests stool test - cologuard is ordered Assessment & Plan (08/12/2023 11:32 AM EST): Pt was seen by [facility] on 08/18/21. -Scheduled for colonoscopy in October 2021. -Pt did not have a colonoscopy as scheduled, will check its status Assessment & Plan (06/06/2023 1:09 PM EST): Pt was seen by [facility] on 08/18/21. -Scheduled for colonoscopy in October 2021. -Pt did not have a colonoscopy as scheduled, will check its status Assessment & Plan (11/21/2022 12:30 PM EDT): Pt was seen by [facility] on 08/18/21. -Scheduled for colonoscopy in October 2021. -Pt did not have a colonoscopy as scheduled, will check its status Assessment & Plan (09/02/2022 5:45 AM EST): Pt was seen by [facility] on 08/18/21. -Scheduled for colonoscopy in October [...] seizure > 15 years -previously seen by [facility] clinician -Patient seeking in-person counseling Assessment & Plan (04/15/2024 8:12 AM EDT): - Hx Diagnosis of bipolar disorder. - Previous medication: Depakote, but patient discontinued (unclear when it was started and if it was for Hx seizure disorder, no seizure > 15 years -previously seen by [facility] clinician -Patient started in-person counseling since May 2020 Assessment & Plan (08/12/2023 11:31 AM EST): - Hx Diagnosis of bipolar disorder. - Previous medication: Depakote, but patient discontinued (unclear when it was started and if it was for Hx seizure disorder, no seizure > 15 years -previously seen by [facility] clinician -Patient started in-person counseling since May 2020 Assessment & Plan (11/21/2022 12:20 PM EDT): Hx Diagnosis of bipolar disorder. Previous medication: Depakote -previously seen by [facility] clinician -Patient started in-person counseling since May 2020 -Patient declined to take depakote, agreed to discontinue Assessment & Plan (08/23/2022 9:00 AM EST): Hx Diagnosis of bipolar disorder. Previous medication: Depakote -previously seen by [facility] clinician -Patient started in-person counseling since May 2020 -agreed to restart Depakote for her history of bipolar disorder in May 2020 -continue Depakote at this time Asthma with COPD 02/29/2012 Assessment & Plan (11/25/2024 9:04 AM EDT): - Mineral Resources Inspector: Dr. Polanco, seen on 09/27/22 - Maintenance: [...] mo or sooner prn Assessment & Plan (08/18/2024 9:58 PM EST): - Mineral Resources Inspector: Dr. Polanco, seen on 09/27/22 - Maintenance: [...] & Plan (04/21/2024 6:03 AM EDT): - Mineral Resources Inspector: Dr. Polanco, seen on 09/27/22 - Maintenance: [...] & Plan (01/13/2024 11:47 AM EDT): - Mineral Resources Inspector: Dr. Polanco, seen on 09/27/22 - Maintenance: [...] & Plan (10/22/2023 9:48 PM EDT): - Mineral Resources Inspector: Dr. Polanco, seen on 09/27/22 - Maintenance: [...] & Plan (08/12/2023 11:19 AM EST): - Mineral Resources Inspector: Dr. Polanco, seen on 09/27/22 - Maintenance: [...] & Plan (06/06/2023 1:05 PM EST): - Mineral Resources Inspector: Dr. Polanco, seen on 09/27/22 - Maintenance: [...] & Plan (01/25/2023 11:45 AM EDT): - Mineral Resources Inspector: Dr. Polanco, seen on 09/27/22 - Maintenance: [...] & Plan (11/24/2022 5:40 PM EDT): - Mineral Resources Inspector: Dr. Polanco, recently seen. - Maintenance: Previously [...] Assessment & Plan (08/23/2022 8:55 AM EST): -Mineral Resources Inspector: Dr. Polanco, resumed care since 08/2019. -Maintenance: [...] while - recently seen by Dr. Xiao, [facility] Cat Sitter, in November 2023 - she had lung CT as a part of lung cancer screening which showed no mediastinal lymphadenopathy and stable nodule - patient has reticularis livedo and lately feeling sick, more frequent infection and had Shingles. Assessment & Plan (04/21/2024 6:06 AM EDT): - patient had not had an appointment with specialist for a while - recently seen by Dr. Xiao, [facility] Cat Sitter, in November 2023 - she had lung [...] had Shingles. Will check lab. Refer to french comber for their recommendation on management Assessment & Plan (08/12/2023 11:26 AM EST): - patient has not been followed by a specialist - she had lung CT as a part of lung cancer screening in September 2022, no mediastinal lymphadenopathy and stable nodule Dyslipidemia 02/29/2012 Assessment & Plan (11/25/2024 9:06 AM EDT): Current medication: Rosuvastatin 40 mg at bedtime Last lipid profile: 06/06/23 TC 289; TG 102; HDL 52; LDL 216 Encourage her to improve adherence to medication and lifestyle modification May need to change to Atorvastatin if her renal function declines. According to ACC/AHA guideline, high-intensity statin therapy is recommended. Assessment & Plan (08/18/2024 12:16 PM EST): [...] is recommended. Hypertension 02/29/2012 Assessment & Plan (11/25/2024 9:05 AM EDT): -Goal BP < 150/90 per [...] refer her to [facility]. Assessment & Plan (08/18/2024 10:05 PM EST): [...] problem arises Prediabetes 02/29/2012 Assessment & Plan (11/25/2024 9:05 AM EDT): -06/06/23 A1C 5.8% Assessment & Plan (08/18/2024 12:16 PM EST): [...] Encounters Date Type Department Care Team Description 11/25/2024 10:30 AM EDT Office Visit [facility] [address] [place] [phone] Jackie Butler MD Primary hypertension (Primary Dx); Asthma with COPD (CMS/HCC); Osteoporosis without current pathological fracture, unspecified osteoporosis type; Prediabetes; Dyslipidemia; Tobacco dependence; Smoking greater than 20 pack years; Weight loss; Right lower quadrant abdominal mass 11/25/2024 Travel 11/24/[address] [facility] [address] [place] [phone] Jackie Butler MD CHART PREP 10/02/[address] [facility] [address] [place] [phone] Jackie Butler MD 09/30/[address] [facility] [address] [place] [phone] Jackie Butler MD 09/28/[address] [facility] [address] [place] [address] Jackie Butler MD Cardiovascular event risk; Vitamin D deficiency; Gastroesophageal reflux disease, unspecified whether esophagitis present 09/27/[address] [facility] [address] [place] [address] Jackie Butler MD Essential hypertension; Asthma with COPD ([facility]) from Last 3 Months Immunizations Name Administration [...] Mass Index 21.59 11/25/2024 10:55 AM EDT Plan of Treatment Health Maintenance Due Date Last Done Comments CT Colonography 1950 Colonoscopy 1950 Colorectal Cancer Screening 1950 FIT DNA/Cologuard 1950 FIT 1950 FOBT 1950 Sigmoidoscopy 1950 COVID-19 Vaccine ( season) 2024 Diabetes: Hemoglobin A1C 08/18/2025 025, 06/06/2023, 08/23/2022, Additional history exists SDOH Screening 08/18/2025 08/18/2024 Mammogram 11/01/2025 11/02/2023, 09/13, 09/27/2021, Additional history exists Alcohol/Substance Use Screening 11/25/2025 11/25/2024 Depression Screening 11/25/2025 11/25/2024, 11/26/19 25 Tobacco Screening 11/25/2025 11/25/2024 Lipid Panel 08/18/2029 08/18/2024, 04/0 03/2024, 06/06/2023, [...] Procedure Name Priority Date/Time Associated Diagnosis Comments US ABDOMEN LIMITED Routine 10/01/2024 11 :04 PM EDT HEMOGLOBIN A1C Routine 08/18/2024 12:38 PM EST Prediabetes LIPID PANEL WITH REFLEX TO DIRECT LDL Routine 08/18/2024 12:38 PM EST Dyslipidemia BI MAMMOGRAM SCREENING TOMOSYNTHESIS BILATERAL Routine 11/02/2023 3:20 PM EDT HEPATITIS C AB W/REFL TO HCV RNA, QN, PCR Routine 10/23/2023 10:12 AM EDT Sarcoidosis from Last 3 Months or Most Recently Relevant to Health Maintenance Results * US Abdomen Limited (10/01/2024 11:04 PM EDT) Anatomical Region Laterality Modality Abdomen Ultrasound 10/01/2024 11:0 4 PM EDT Narrative 10/01/2024 11:06 PM EDT ? [facility] ?[address] ?[place] [address] ? Ultrasound Report ? Signed ? Patient: Villaran,Earline T ?MR#: [id number] ? : 1950 ?Acct:[id number] ? Age/Sex: 74 / F ?ADM Date: 03/18/25 ? Loc: HO.US ? Attending Dr: Jackie Butler MD ? Ordering Physician: Jackie Butler MD ?? Date of Service: 09/30/24 ?? Procedure(s): US abdomen limited ?? Accession Number(s): [id number] ? cc: Jackie Butler MD ? CLINICAL HISTORY: Tender Cyst in RUQ, ruq abd mass ? US abdominal wall nonvascular ? Comparison: None ? Findings: ?? Sonographic evaluation in the area of clinical concern right upper ?? quadrant anterior abdominal wall showed no discrete solid or cystic mass ?? shadowing hernia or calcifications ? Impression: ?? No sonographic correlate to the area of clinical concern anterior ?? abdominal wall right upper quadrant ? This document has been electronically signed by: Vishnu Al MD on ?? 10/01/2024 23:04:27 ? Dictated By: ?Vishnu Al MD ? Signed By: ?<Electronically signed by Vishnu Al MD in OV> ?10/01/24 2306 ? DD/ 03 ? TD/TT: 10/01/242303 ? Iv Therapy Nurse: ? Procedure Note Donotuseinterpreter, Image - 10/01/[address] [address] Ultrasound Report Signed Patient: Earline Mcduffie TMR#: [id number] : 1950cct:[id number] Age/Sex: 74 / FADM Date: 09/30/24 Loc: HO.US Attending Dr: Jackie Butler MD Ordering Physician: Jackie Butler MD Date of Service: 09/30/24 Procedure(s): US abdomen limited Accession Number(s): [id number] cc: Jackie Butler MD CLINICAL HISTORY: Tender Cyst in RUQ, ruq abd mass US abdominal wall nonvascular Comparison: None Findings: Sonographic evaluation in the area of clinical concern right upper quadrant anterior abdominal wall showed no discrete solid or cystic mass shadowing hernia or calcifications Impression: No sonographic correlate to the area of clinical concern anterior abdominal wall right upper quadrant This document has been electronically signed by: Vishnu Al MD on 10/01/2024 23:04:27 Dictated By: Vishnu Al MD Signed By: <Electronically signed by Vishnu Al MD in OV> 10/01/242305 DD/ 03 TD/TT: 10/01/242303 Iv Therapy Nurse: us Jackie Butler MD IMG US PROCEDURES Final Result * (ABNORMAL) Lipid Panel with Reflex to Direct LDL (08/18/2024 12:38 PM EST) Triglycerides 174(H) <150 mg/dL [facility] Comment:Desirable Triglyceri de: less than 150 mg/dLBorderline High Triglyceride 150-199 mg/dLHigh Triglyceride: 200-499 mg/dLVery High Triglyceride: greater than or equal to 5OO mg/dL Cholesterol 292(H) <200 mg/dL [facility] Comment:Desirable Cholestero l: less than 200 mg/dLBorderline High Cholesterol: 200-239 mg/dLHigh Cholesterol: greater than 239 mg/dL LDL Cholesterol Calculated 213(H) <100 mg/dL [facility] Comment:Desirable LDL: less than 100 mg/dLNear Optimal/Above Optimal LDL: 110- 129 mg/dLBorderline High LDL: 130-159 mg/dLHigh LDL: 160-189 mg/dLVery High LDL: greater than or equal to 190 mg/dL HDL Cholesterol 45 >40 mg/dL [facility] Comment:Desirable HDL: great er than 40 mg/dL Note: This HDL assay may give artificially low results in patients with liver disease. Blood 08/18/2024 12:3 8 PM EST 08/18/2024 1:19 PM EST us Jackie Butler MD LAB BLOOD ORDERABLES Final Resul t [facility] [address] [place] [phone] * Hemoglobin A1c (08/18/2024 12:38 PM EST) Hemoglobin A1c 5.7 <6.0 % [facility] Comment:Hemoglobin A1C Refer ence Range Adults: 4.8 - 6.0 % Non diabetic: < 6.0 % Goal: < 7.0 %Additional Action Suggested: > 8.0 %Note: Hemoglobin A1c results are invalid for patients with abnormal amounts of HbF. Blood transfusions may impact the HbA1c concentration in the patient sample. Estimated Average Glucose 117 mg/dL [facility] Comment:eAG = Estimated ave rage glucose which is %A1C expressed asaverage glucose, using the formula of the W4M-DnpnfplXdyfbor Glucose study (ADAG), Diabetes Care, Vol.31,#8,Aug. 2008 Blood Venous blood specimen / Unknown 08/18/2024 12:38 PM EST 08/18/2024 1:19 PM EST us Jackie Butler MD LAB BLOOD ORDERABLES Final Resul t [facility] [address] [place] [address] [phone] * BI Mammogram Screening Tomosynthesis Bilateral (11/02/2023 3:20 PM EDT) Anatomical Region Laterality Modality Breast Bilateral Mammography 11/02/2023 3:20 PM EDT Narrative 12/03/2023 4:12 AM EDT ? [facility] ? [address] ?[place] [address] ? Mammography Report ? Signed ? Patient: Earline Mcduffie ?MR#: [id number] ?? [id number] ? : 1950 ?Acct:[id number] ? Age/Sex: 73 / F ?ADM Date: //24 ? Loc: HO.MAMMO ? Attending Dr: Jackie Butler MD ? Ordering Physician: Luke,Jackie MD ?Results: 1Negative ? Date of Service: //24 ?Follow Up: 1 Year From Orig ?? inal Mammogram ? Procedure(s): MM tomosynthesis screening BI ?? Accession Number(s): [id number] ? cc: Jackie Butler MD ? EXAMINATION: [...] by Kimber Smith MD in OV> ? 12/03/23 0408 ? DD/ 1520 ? TD/TT: ? Iv Therapy Nurse: ? Procedure Note Olivia, Image - 12/03/2023 [facility] [address] [place] [address] [place] [address] Mammography Report Signed Patient: Earline Mcduffie TMR#: [id number] : 2Acct:[id number] Age/Sex: 73 / FADM Date: 11/02/23 Loc: JAX[facility] Attending Dr: Jackie Butler MD Ordering Physician: Sakurai,Jackie MDResults: 1Negative Date of Service: 11/02/23Follow Up: 1 Year From Orig inal Mammogram Procedure(s): MM tomosynthesis screening BI Accession Number(s): [id number] cc: Jackie Butler MD EXAMINATION: MM SCREENING [...] in OV> 12/03/23 0408 DD/ 1520 TD/TT: Iv Therapy Nurse: Jackie Butler MD IMG BI PROCEDURES Edited Result - Final * Hepatitis C Antibody with Reflex to HCV, RNA, Quantitative, Real-Time PCR (10/23/2023 10:12 AM EDT) Hepatitis C Antibody Nonreactive Nonreactive [facility] Comment:Antibodies to HCV no t detected; does not exclude early acuteHCV infection. Blood Venous blood specimen / Unknown 10/23/2023 10:12 AM EDT 10/23/2023 11:20 AM EDT Jackie Butler MD LAB BLOOD ORDERABLES Final Resul t [facility] [address] [place] [address] [phone] from Last 3 Months or Most Recently Relevant to Health Maintenance Insurance [facility] [employer] (HMO D-SNP) [employer] [id number] Care Teams Manager Neonatal Relationship Specialty Start Date End Date Jackie Butler MD [address] [place] [phone] PCP - General Family Medicine 07/16/18
--- OUTSIDE RECORDS SUMMARY | 2024-11-25 13:03 | XMS_ITS | Encounter Summary ---
Author Organization [employer] Address [address] [facility] [address] [place] [address] Care Team Providers Care Office Administration Instructor Name Role Phone Jackie Butler MD Primary Care Provider [phone] Encounter Details Date Type Department Care Team (Latest Contact Info) Description 11/25/2024 Travel Social History Tobacco Use Types Packs/Day [...] documented as of this encounter Care Teams Office Administration Instructor Relationship Specialty Start Date End Date Jackie Butler MD [address] [place] [phone] PCP - General Family Medicine 07/16/18 documented as of this encounter
--- OUTSIDE RECORDS SUMMARY | 2024-11-25 13:03 | XMS_ITS | Encounter Summary ---
Author Organization [employer] Address [address] [facility] [address]t [place] [address] Care Team Providers Care Rail Loader Name Role Phone Jackie Butler MD Primary Care Provider [phone] Reason for Visit * Reason Onset Date Comments CHART PREP 11/24/2024 Encounter Details Date Type Department Care Team ([facility] Contact Info) Description 11/24/2024 Telephone [facility] [address] [place], [place] [phone] Jackie Butler MD [address] [place], [place] [phone] CHART PREP Social History Tobacco Use Types Packs/Day Years [...] encounter Miscellaneous Notes * Telephone Encounter - Rohit Granados [place] - 11/24/2024 9:43 AM EDT Chart Prep Labs: done from 08/18/24 Images: done ABD 10/01/24 Referrals: not applicable Vaccines due: not applicable Screenings: colonoscopy Overdue care gaps: SBIRT, Oral health screening, Disability screen, and Tobacco. Pt with pre-dm Dx please f/u with PCP for A1C. documented in this encounter Plan of Treatment Not on file documented as of this encounter Visit Diagnoses Not on filedocumented in this encounter Additional Health Concerns Assessment Noted Time PHQ-9 Depression Total Score: 8 08/18/19 11:36 AM EST documented as of this encounter Care Teams Rail Loader Relationship Specialty Start Date End Date Jackie Butler MD [address] [place] [phone] PCP - General Family Medicine 07/16/18 documented as of this encounter
[2024-11-25 13:07] LABS: MANUAL DIFF FLAG NO
[2024-11-25 13:16] LABS: Basophils Percent Auto 0.9 % (0-2); Eosinophils Absolute Auto 0.1 X10*3/uL (0.0-0.4); Eosinophils Percent Auto 1.4 % (0-4); Hematocrit 36.3 % (37.0-47.0); Hemoglobin 12.2 g/dl (12.0-16.0); Imm Gran Abs Auto 0.01 X10*3/uL (0.00-0.03); Imm Gran Pct Auto 0.2 % (0.0-0.4); Lymphocytes Percent Auto 23.5 % (20-40); Mean Corpuscular HGB Conc 33.6 g/dl (31.0-35.0); Mean Corpuscular Hemoglobin 30.6 pg (27.0-33.0); Mean Platelet Volume 10.1 fL (9.4-12.3); Monocytes Absolute Auto 0.5 X10*3/uL (0.1-1.2); Monocytes Percent Auto 10.5 % (2-11); Neutrophils Absolute Auto 2.8 x10*3/uL (2.0-8.3); Neutrophils Percent Auto 63.5 % (45-73); Platelet Count 316 X10*3/uL (160-400); Red Blood Count 3.99 X10*6/uL (4.20-5.50); Red Cell Distribution Width 14.1 % (11.0-16.0); White Blood Count 4.4 X10*3/uL (4.8-10.8)
[2024-11-25 13:49] LABS: Alanine Aminotransferase 15 U/L (0-31); Albumin Level 4.2 g/dL (3.5-5.0); Alkaline Phosphatase 68 U/L (39-117); Anion Gap 14 (12-20); Aspartate Amino Transferase 26 U/L (5-31); Bilirubin Total 0.4 mg/dL (0.0-1.0); Blood Urea Nitrogen 11 mg/dL (9-16); Calcium 10.3 mg/dL (8.4-10.2); Carbon Dioxide 27 mmol/L (22-29); Chloride 103 mmol/L (96-108); Cholesterol 224 mg/dL (<200); Estimated Glomerular Filt Rate > 60; Glucose Random 85 mg/dL (60-115); HDL Cholesterol 53 mg/dL (>40); LDL Cholesterol Calculated 146 mg/dL (<100); Potassium 3.8 mmol/L (3.3-5.1); Sodium 140 mmol/L (135-145); Total Protein 6.7 g/dL (6.5-8.0); Triglycerides 129 mg/dL (<150)
[2024-11-25 13:50] LABS: TSH reflex Free T4 0.39 uIU/mL (0.32-4.0)
[2024-11-25 14:28] LABS: Reflex LDLD? No
== END 2024-11-25 11:33 | disposition home or self-care (01) ==
LOC: HO.HHCL 11:32
PROVIDERS: Visit Provider Family Medicine
DX: I10 Essential (primary) hypertension (principal); E78.5 Hyperlipidemia, unspecified; R63.4 Abnormal weight loss
CPT/HCPCS: 36415; 80053; 80061; 84443; 85025

== ENCOUNTER 2025-02-24 13:38 | Outpatient (REF) | payer OTHER, SELFPAY ==
--- OUTSIDE RECORDS SUMMARY | 2025-02-24 14:34 | XMS_ITS | Encounter Summary ---
Author Organization [employer] Address [address] [facility] 7t [place] [address] Care Team Providers Care Calender Machine Operator Name Role Phone Jackie Butler MD Primary Care Provider [phone] Encounter Details Date Type Department Care Team (Late st Contact Info) Description 08/24/2022 Orders Only [facility] [address], [place] [phone] Jackie Butler MD [address] [place], [place] [phone] Social History Tobacco Use Types Packs/Day Years [...] on filedocumented in this encounter Care Teams Calender Machine Operator Relationship Specialty Start Date End Date Jackie Butler MD [address] [place] [address] PCP - General Family Medicine 07/16/18 documented as of this encounter
[2025-02-24 17:49] LABS: MANUAL DIFF FLAG NO
[2025-02-24 17:52] LABS: Hematocrit 34.8 % (37.0-47.0); Hemoglobin 11.9 g/dl (12.0-16.0); Imm Gran Abs Auto 0.02 X10*3/uL (0.00-0.03); Imm Gran Pct Auto 0.4 % (0.0-0.4); Lymphocytes Absolute Auto 2.1 X10*3/uL (1.2-4.9); Mean Corpuscular HGB Conc 34.2 g/dl (31.0-35.0); Mean Corpuscular Hemoglobin 31.5 pg (27.0-33.0); Mean Corpuscular Volume 92.1 fL (80.0-98.0); NRBC Abs Auto 0.000 X10*3/uL (0.0-0.012); NRBC Pct Auto 0.0 /100WBC (0.0-0.2); Platelet Count 357 X10*3/uL (160-400); Red Blood Count 3.78 X10*6/uL (4.20-5.50); White Blood Count 5.6 X10*3/uL (4.8-10.8)
[2025-02-24 18:17] LABS: Alanine Aminotransferase 13 U/L (0-31); Albumin Level 4.3 g/dL (3.5-5.0); Alkaline Phosphatase 61 U/L (39-117); Anion Gap 12 (12-20); Aspartate Amino Transferase 23 U/L (5-31); Blood Urea Nitrogen 10 mg/dL (9-16); Calcium 9.6 mg/dL (8.4-10.2); Carbon Dioxide 27 mmol/L (22-29); Chloride 103 mmol/L (96-108); Cholesterol 264 mg/dL (<200); Estimated Glomerular Filt Rate > 60; HDL Cholesterol 50 mg/dL (>40); Potassium 3.5 mmol/L (3.3-5.1); Sodium 138 mmol/L (135-145); Total Protein 6.5 g/dL (6.5-8.0); Triglycerides 145 mg/dL (<150)
[2025-02-24 19:04] LABS: Reflex LDLD? No
[2025-02-24 19:15] LABS: Free T4 (Free Thyroxine) 1.11 ng/dL (0.71-1.85)
== END 2025-02-24 13:39 | disposition home or self-care (01) ==
LOC: HO.HHCL 13:38
PROVIDERS: PCP Family Medicine; Visit Provider Family Medicine
DX: R63.4 Abnormal weight loss (principal); E78.5 Hyperlipidemia, unspecified
CPT/HCPCS: 36415; 80053; 80061; 84439; 84443; 85025

== ENCOUNTER 2025-05-25 11:02 | Outpatient (REF) | payer OTHER, SELFPAY ==
--- OUTSIDE RECORDS SUMMARY | 2025-05-25 10:15 | XMS_ITS | Encounter Summary ---
Author Organization [employer] Address [address] [facility] 7t [place] [address] Care Team Providers Care Racetrack Steward Name Role Phone Jackie Butler MD Primary Care Provider [phone] Encounter Details Date Type Department Care Team (Late st Contact Info) Description 2025 10:15 AM EST Office Visit [facility] [address] [place] [address] [phone] Jackie Butler MD [address] [place], [place] [phone] Dyslipidemia (Primary Dx); Primary hypertension; Prediabetes; Tobacco dependence; Throat discomfort; Weight loss; Screening for colon cancer; Encounter for immunization Social History Tobacco Use [...] Answer Date Recorded Patient Health Questionnaire-9 Score 10 2025 Patient Health Questionnaire-9 Score 10 2025 Last PHQ-9: Questionnaire Data Not on file 1 07/25/2024 Housing Stability Answer Date Recorded What is [...] Answer Date Recorded Patient Health Questionnaire-2 Score 3 2025 Internet Access Answer Date Recorded Internet Access [...] Sign Reading Time Taken Comments Blood Pressure 110/70 2025 10:29 AM EST Pulse 66 2025 10:29 AM EST Temperature 35.2 C (95.3 F) 2025 10:29 AM EST Respiratory Rate 16 2025 10:29 AM EST Oxygen Saturation 98% 2025 10:29 AM EST Inhaled Oxygen Concentration - - Weight 53.3 kg (117 lb 9.6 oz) 2025 10:29 AM EST Height 162.6 cm (5' 4 ) 2025 10:29 AM EST Body Mass Index 20.19 2025 10:29 AM EST documented in this encounter Functional Status * Over the past 2 weeks, how often have you been bothered by any of the following problems? Question Answer Date of Assessment Author Patient Health Questionnaire -2 Score 3 2025 10:28 AM EST Geovany White MA * Little interest or pleasure in doing things Answer Date of Assessment Author More than half the days 2025 10:28 AM EST Arina White MA * Feeling down, depressed, or hopeless Answer Date of Assessment Author Several days 2025 10:28 AM Arina Acosta MA * Trouble falling or staying asleep, or sleeping too much Answer Date of Assessment Author Several days 2025 10:28 AM Arina Acosta MA * Feeling tired or having little energy Answer Date of Assessment Author Several days 2025 10:28 AM Arina Acosta MA * Poor appetite or overeating Answer Date of Assessment Author More than half the days 2025 10:28 AM Arina Acosta MA * Feeling bad about yourself - or that you are a failure or have let yourself or your family down Answer Date of Assessment Author Several days 2025 10:28 AM Arina Acosta MA * Trouble concentrating on things, such as reading the newspaper or watching television Answer Date of Assessment Author Several days 2025 10:28 AM Arina Acosta MA * Moving or speaking so slowly that other people could have noticed? Or the opposite - being so fidgety or restless that you have been moving around a lot more than usual. Answer Date of Assessment Author Several days 2025 10:28 AM Arina Acosta MA * Thoughts that you would be better off or hurting yourself in some way Answer Date of Assessment Author Not at all 2025 10:28 AM Arina Acosta MA * Patient Health Questionnaire-9 Score Answer Date of Assessment Author 10 2025 10:28 AM Arina Acosta MA * How difficult have these problems made it for you to do your work, take care of things at home, or get along with other people? Answer Date of Assessment Author Somewhat difficult 2025 10:28 AM Arina Villasenor MA documented as of this encounter Plan of Treatment Scheduled Orders Name Type Priority Associated Diagnoses Orde r Schedule CBC auto differential Lab Routine Weight loss Expected: 2025 (Approximate), Expires: 2026 TSH with Reflex to Free T4 Lab Routine Weight loss Expected: 2025 (Approximate), Expires: 2026 Cologuard colon cancer screening Lab Routine Screening for colon cancer Ordered: 2025 documented as of this encounter Visit Diagnoses Diagnosis Dyslipidemia- Primary Other and unspecified hyperlipidemia Primary hypertension Unspecified essential hypertension Prediabetes Other abnormal glucose Tobacco dependence Tobacco use disorder Throat discomfort Throat pain Weight loss Loss of weight Screening for colon cancer Special screening for malignant neoplasms, colon Encounter for immunization documented in this encounter Additional Health Concerns Assessment Noted Time PHQ-9 Depression Total Score: 10 025 10:28 AM EST documented as of this encounter Care Teams Racetrack Steward Relationship Specialty Start Date End Date Jackie Butler MD [address] [place] [address] PCP - General Family Medicine 07/16/18 documented as of this encounter
--- OUTSIDE RECORDS SUMMARY | 2025-05-25 13:24 | XMS_ITS | Encounter Summary ---
Author Organization [employer] Address [address] [facility] 7t [place] [address] Care Team Providers Care Animal Treatment Investigator Name Role Phone Jackie Butler MD Primary Care Provider [phone] Encounter Details Date Type Department Care Team (Late st Contact Info) Description 08/24/2022 Orders Only [facility] [address] [place], [place] [phone] Jackie Butler MD [address] [place], [place] [phone] Social History Tobacco Use Types Packs/Day Years [...] on filedocumented in this encounter Care Teams Animal Treatment Investigator Relationship Specialty Start Date End Date Jackie Butler MD [address] [place], [place] [phone] PCP - General Family Medicine 07/16/18 documented as of this encounter
--- OUTSIDE RECORDS SUMMARY | 2025-05-25 13:24 | XMS_ITS | Encounter Summary ---
Author Organization [employer] Address [address] [facility] 7t [place] [address] Care Team Providers Care Associate Editor Name Role Phone Jackie Butler MD Primary Care Provider [phone] Encounter Details Date Type Department Care Team (Latest Contact Info) Description 2025 Travel Social History Tobacco Use Types Packs/Day [...] AM EDT documented as of this encounter Functional Status * Over the past 2 weeks, how often have you been bothered by any of the following problems? Question Answer Date of Assessment Author Patient Health Questionnaire -2 Score 3 2025 10:28 AM Geovany Acosta [place] * Little interest or pleasure in doing things Answer Date of Assessment Author More than half the days 2025 10:28 AM Arina Acosta [place] * Feeling down, depressed, or hopeless [...] Assessment Noted Time PHQ-9 Depression Total Score: 025 10:28 AM EST documented as of this encounter Care Teams Associate Editor Relationship Specialty Start Date End Date Jackie Butler MD [address] [place] [id number] PCP - General Family Medicine 07/16/18 documented as of this encounter
--- OUTSIDE RECORDS SUMMARY | 2025-05-25 13:24 | XMS_ITS | Encounter Summary ---
Author Organization [employer] Address [address] [facility] 7t [place] [address] Care Team Providers Care Personal Lines Sales Rep Name Role Phone Jackie Butler MD Primary Care Provider [phone] Encounter Details Date Type Department Care Team (Late st Contact Info) Description 02/25/2025 Orders Only [facility] MED[facility]INE [address] [place], [place] [phone] Jackie Butler MD [address] [place], [place] [phone] Dyslipidemia (Primary Dx) Social History Tobacco Use Types Packs/Day Years [...] Type Priority Associated Diagnoses Orde r Schedule Lipid Panel with Reflex to Direct LDL Lab Routine Dyslipidemia Expected: 05/18/2025 (Approximate), Expires: 02/25/2026 Comprehensive Metabolic Panel Lab Routine Dyslipidemia Expected: 05/18/2025, Expires: 02/25/2026 documented as of this encounter Visit Diagnoses Diagnosis Dyslipidemia- Primary Other and unspecified hyperlipidemia documented in this encounter Additional Health Concerns Assessment Noted Time PHQ-9 Depression Total Score: 15 025 11:35 AM EDT documented as of this encounter Care Teams Personal Lines Sales Rep Relationship Specialty Start Date End Date Jackie Butler MD [address] [place] [id number] PCP - General Family Medicine 07/16/18 documented as of this encounter
--- OUTSIDE RECORDS SUMMARY | 2025-05-25 13:24 | XMS_ITS | Encounter Summary ---
Author Organization [employer] Address [address] [facility] 7t [place] [address] Care Team Providers Care Partition Setter Name Role Phone Jackie Butler MD Primary Care Provider [phone] Reason for Visit * Reason Onset Date Comments chartprep 05/22/2025 Encounter Details Date Type Department Care Team ([facility] st Contact Info) Description 05/22/2025 Telephone [facility] [address] [place], [place] [phone] Jackie Butler MD [address] [place], [place] [phone] chartprep Social History Tobacco Use Types Packs/Day Years [...] encounter Miscellaneous Notes * Telephone Encounter - Karon Valdez MA - 05/22/2025 1:14 PM EST ..Chart Prep Labs: done Images: not done CT abdominal Pelvis Vaccines due: Covid Due and Flu Due Referrals: Not Applicable Screenings: Colonoscopy Overdue care gaps: Glucose and PHQ9 documented in this encounter Plan of Treatment Not on file documented as of this encounter Visit Diagnoses Not on filedocumented in this encounter Additional Health Concerns Assessment Noted Time PHQ-9 Depression Total Score: 15 025 11:35 AM EDT documented as of this encounter Care Teams Partition Setter Relationship Specialty Start Date End Date Jackie Butler MD [address] [place] [address] PCP - General Family Medicine 07/16/18 documented as of this encounter
--- OUTSIDE RECORDS SUMMARY | 2025-05-25 13:24 | XMS_ITS | Encounter Summary ---
Author Organization [employer] Address [address] [facility] 7t [place] [address] Care Team Providers Care Invasive Cardiologist Name Role Phone Jackie Butler MD Primary Care Provider [phone] Reason for Referral * Imaging (Routine) - Closed Specialty Diagnoses / Procedures Referred By Drea meyers Referred To Contact Radiology Diagnoses Right lower quadrant abdominal mass Procedures CT Abdomen Pelvis w/ Contrast Jackie Butler MD [address] [place] [address] Phone: tel: fax: [facility] [address], [address] [place] [address] Phone: tel: fax: Referral ID Status Reason Start Date Expiration Date Visits Re quested Visits Authorized [id number] Closed 12/03/2024 12/03/2025 1 1 Encounter Details Date Type Department Care Team ([facility] st Contact Info) Description 12/03/2024 Orders Only [facility] MEDICINE [address] [place], [place] [phone] Jackie Butler MD [address] [place], [place] [phone] Right lower quadrant abdominal mass (Primary Dx) Social History Tobacco Use Types [...] Type Priority Associated Diagnoses Orde r Schedule CT Abdomen Pelvis w/ Contrast Imaging Routine Right lower quadrant abdominal mass Expected: 12/03/2024, Expires: 12/03/2025 documented as of this encounter Visit Diagnoses Diagnosis Right lower quadrant abdominal mass- Primary Abdominal or pelvic swelling, mass, or lump, right lower quadrant documented in this encounter Additional Health Concerns Assessment Noted Time PHQ-9 Depression Total Score: 15 025 11:35 AM EDT documented as of this encounter Care Teams Invasive Cardiologist Relationship Specialty Start Date End Date Jackie Butler MD [address] [place] [address] PCP - General Family Medicine 07/16/18 documented as of this encounter
--- OUTSIDE RECORDS SUMMARY | 2025-05-25 13:24 | XMS_ITS | Encounter Summary ---
Author Organization [employer] Address [address] [facility] 7t [place] [address] Care Team Providers Care Rn Clinical Appeals Name Role Phone Jackie Butler MD Primary Care Provider [phone] Reason for Visit * Reason Onset Date Comments Results 06/15/2023 Encounter Details Date Type Department Care Team ([facility] st Contact Info) Description 06/15/2023 Telephone [facility]INE [address] [place], [place] [phone] Jackie Butler MD [address] [place], [place] [phone] Results Social History Tobacco Use Types Packs/Day [...] encounter Miscellaneous Notes * Telephone Encounter - Jeffbriana Martin - 06/15/2023 12:08 PM EST Tc from [facility] working with [facility] regarding lab results from 06/06/23. Any questions please contact Saritha at [phone] documented in this encounter Plan of Treatment Not on file documented as of this encounter Visit Diagnoses Not on filedocumented in this encounter Care Teams Rn Clinical Appeals Relationship Specialty Start Date End Date Jackie Butler MD [address] [place] [id number] PCP - General Family Medicine 07/16/18 documented as of this encounter
--- OUTSIDE RECORDS SUMMARY | 2025-05-25 13:24 | XMS_ITS | Encounter Summary ---
Author Organization [employer] Address [address] [facility] 7t [place] [address] Care Team Providers Care Afterschool Babysitter Name Role Phone Jackie Butler MD Primary Care Provider [phone] Reason for Visit * Reason Onset Date Comments Order 12/03/2024 Encounter Details Date Type Department Care Team ([facility] st Contact Info) Description 12/03/2024 Telephone [facility] [address] [place], [place] [phone] Jackie Butler MD [address] [place], [place] [phone] Order Social History Tobacco Use Types Packs/Day Years [...] * Telephone Encounter - Jeff Martin - 12/03/2024 11:10 AM EDT Tc from [facility] with [facility] they received an order of CT pelvis without IV but [facility] states it should be CT abdomen and pelvis with IV. If any questions you can contact [facility] at [phone]. documented in this encounter Plan of Treatment Not on file documented as of this encounter Visit Diagnoses Not on filedocumented in this encounter Additional Health Concerns Assessment Noted Time PHQ-9 Depression Total Score: 15 025 11:35 AM EDT documented as of this encounter Care Teams Afterschool Babysitter Relationship Specialty Start Date End Date Jackie Butler MD [address] [place] [address] PCP - General Family Medicine 07/16/18 documented as of this encounter
--- OUTSIDE RECORDS SUMMARY | 2025-05-25 13:24 | XMS_ITS | Clinical Summary ---
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 Name Role Phone Jackie Butler MD Primary Care Provider [phone] Allergies Active Allergy Reactions Criticality Noted Date Comments Penicillins Hives 09/21/2010 [place] Extract 09/28/2015 Medications * This document contains [...] per day 18 g 3 3 Active alendronate (Fosamax) 70 MG tabletIndication s:Osteoporosis without current pathological fracture, unspecified osteoporosis type TAKE 1 TABLET BY MOUTH EVERY WEEK IN THE MORNING AT LEAST 30 MINUTES BEFORE FIRST FOOD, BEVERAGE, OR MED OF THE DAY 12 tablet 1 4 Active rosuvastatin (Crestor) 40 MG tabletIndication s:Cardiovascular event risk Take 1 tablet by mouth daily at bedtime 90 tablet 3 5 Active hydroCHLOROthiaz robbie (HYDRODiuril) 25 MG tabletIndication s:Essential hypertension TAKE 1 TABLET BY MOUTH EVERY DAY 90 tablet 3 5 Active montelukast (Singulair) 10 MG tabletIndication s:Asthma with COPD (CMS/HCC) ([facility]) TAKE 1 TABLET BY MOUTH EVERY DAY [...] A MEAL 90 capsule 3 5 Active loratadine (Claritin) 10 MG tablet Take 1 tablet (10 mg) by mouth Once per day. 90 tablet 1 5 Active triamcinolone (Kenalog) 0.1 % ointment Apply to affected area thin layer once or twice daily. Apply immediately after shower / bath. 80 g 3 5 Active ezetimibe (Zetia) 10 MG tablet Take 1 tablet (10 mg) by mouth Once per day. 90 tablet 3 5 02/26/20 26 Active Active Problems Problem Noted Date Diagnosed Date Urinary incontinence 03/03/2025 Assessment & Plan (03/03/2025 11:13 AM EDT): - chronic, more symptomatic and problematic lately - mixed, stress and OAB - declines further evaluation by specialist - will prescribe bed pads / chux and other incontinence supplies Inguinal hernia 11/25/2024 Assessment & Plan (03/03/2025 11:19 AM EDT): - confirmed with CT scan on 12/29/24, which shows bilateral hernia - patient is symptomatic on the right side only. Right inguinal hernia contains non-obstructed loop of small bowel - Patient missed the appointment in January. We called General surgery office, and rescheduled her appointment on 04/21/2025 at 11:10 AM. TRACY (generalized anxiety disorder) 10/24/2023 Smoking greater than 20 pack years 10/23/2023 Assessment & Plan (03/03/2025 11:17 AM EDT): - pt reports being three weeks smoke free - low dose lung cancer screening CT in December 2024 Lung RADS 1 (at [facility]) - repeat CT in 1 year Assessment & Plan (11/25/2024 9:06 AM EDT): [...] (08/18/2024 12:17 PM EST): - seen by distribution sales manager and recommended to use hearing aids Assessment & Plan (08/12/2023 11:31 AM EST): - seen by distribution sales manager and recommended to use hearing aids Assessment & Plan (06/06/2023 1:08 PM EST): - seen by distribution sales manager and recommended to use hearing aids - [...] adenopathy -repeat CT scan -refer back to loading supervisor Tobacco dependence 08/23/2022 Assessment & Plan (02/24/2025 9:36 AM EDT): Continue working on smoking cessation Continue lung cancer screening Assessment & Plan (11/25/2024 9:06 AM EDT): [...] requests a referral to new ENT and antenna specialist Assessment & Plan (11/21/2022 12:16 PM EDT): -previously followed by Dr. Vaughn and Dr. Tatum -pt requests a referral to new ENT and antenna specialist Assessment & Plan (09/02/2022 5:46 AM EST): -previously followed by Dr. Vaughn and Dr. Tatum -pt requests a referral to new ENT and antenna specialist Colon cancer screening 08/23/2022 Assessment & Plan (04/21/2024 6:07 AM EDT): - Seen by [facility] on 08/18/21 and scheduled for colonoscopy in October 2021. - Patient did not have a colonoscopy as scheduled, and was re-referred - patient now requested stool test - cologuard is ordered again Assessment & Plan (10/23/2023 9:49 AM EDT): - Seen by [facility] on 08/18/21 and scheduled for colonoscopy in October 2021. - Patient did not have a colonoscopy as scheduled, and was re-referred - patient now requests stool test - cologuard is ordered Assessment & Plan (08/12/2023 11:32 AM EST): Pt was seen by [facility] on 08/18/21. -Scheduled for colonoscopy in October 2021. -Pt did not have a colonoscopy as scheduled, will check its status Assessment & Plan (06/06/2023 1:09 PM EST): Pt was seen by [facility] on 08/18/21. -Scheduled for colonoscopy in October 2021. -Pt did not have a colonoscopy as scheduled, will check its status Assessment & Plan (11/21/2022 12:30 PM EDT): Pt was seen by [facility] on 08/18/21. -Scheduled for colonoscopy in October 2021. -Pt did not have a colonoscopy as scheduled, will check its status Assessment & Plan (09/02/2022 5:45 AM EST): Pt was seen by [facility] on 08/18/21. -Scheduled for colonoscopy in October [...] -Continue vitamin d supplementation Moderate major depression ([facility]/HCC) 01/08/2014 Assessment & Plan (08/18/2024 12:17 PM EST): - Hx Diagnosis of bipolar disorder. - Previous medication: Depakote, but patient discontinued (unclear when it was started and if it was for Hx seizure disorder, no seizure > 15 years -previously seen by [facility] clinician -Patient seeking in-person counseling [...] disorder. Previous medication: Depakote -previously seen by [facility] clinician -Patient started in-person counseling since May 2020 -Patient declined to take depakote, agreed to discontinue Assessment & Plan (08/23/2022 9:00 AM EST): Hx Diagnosis of bipolar disorder. Previous medication: Depakote -previously seen by [facility] clinician -Patient started in-person counseling since May 2020 -agreed to restart Depakote for her history of bipolar disorder in May 2020 -continue Depakote at this time Asthma with COPD ([facility]) 02/29/2012 Assessment & Plan (02/24/2025 9:36 AM EDT): - Homicide Squad Captain: Dr. Polanco, seen on 09/27/22 - Maintenance: [...] mo or sooner prn Assessment & Plan (11/25/2024 9:04 AM EDT): - Homicide Squad Captain: Dr. Polanco, seen on 09/27/22 - Maintenance: [...] & Plan (08/18/2024 9:58 PM EST): - Homicide Squad Captain: Dr. Polanco, seen on 09/27/22 - Maintenance: [...] & Plan (04/21/2024 6:03 AM EDT): - Homicide Squad Captain: Dr. Polanco, seen on 09/27/22 - Maintenance: [...] & Plan (01/13/2024 11:47 AM EDT): - Homicide Squad Captain: Dr. Polanco, seen on 09/27/22 - Maintenance: [...] & Plan (10/22/2023 9:48 PM EDT): - Homicide Squad Captain: Dr. Polanco, seen on 09/27/22 - Maintenance: [...] & Plan (08/12/2023 11:19 AM EST): - Homicide Squad Captain: Dr. Polanco, seen on 09/27/22 - Maintenance: [...] & Plan (06/06/2023 1:05 PM EST): - Homicide Squad Captain: Dr. Polanco, seen on 09/27/22 - Maintenance: [...] & Plan (01/25/2023 11:45 AM EDT): - Homicide Squad Captain: Dr. Polanco, seen on 09/27/22 - Maintenance: [...] & Plan (11/24/2022 5:40 PM EDT): - Homicide Squad Captain: Dr. Polacno, recently seen. - Maintenance: Previously Advair 500/50 [...] Assessment & Plan (08/23/2022 8:55 AM EST): -Homicide Squad Captain: Dr. Polanco, resumed care since 08/2019. -Maintenance: [...] between II and IIIa Previously seen by NephDr. Chandan ferguson on 09/12/19. avoid nephrotoxic drugs Assessment & [...] while - recently seen by Dr. Xiao, [facility], in November 2023 - she had lung CT as a part of lung cancer screening which showed no mediastinal lymphadenopathy and stable nodule - patient has reticularis livedo and lately feeling sick, more frequent infection and had Shingles. Assessment & Plan (04/21/2024 6:06 AM EDT): - patient had not had an appointment with specialist for a while - recently seen by Dr. Xiao, [facility], in November 2023 - she had lung [...] had Shingles. Will check lab. Refer to director of psychiatry for their recommendation on management Assessment & Plan (08/12/2023 11:26 AM EST): - patient has not been followed by a specialist - she had lung CT as a part of lung cancer screening in September 2022, no mediastinal lymphadenopathy and stable nodule Dyslipidemia 02/29/2012 Assessment & Plan (02/28/2025 8:30 AM EDT): Current medication: Rosuvastatin 40 mg at bedtime Last lipid profile: 02/24/25 TC 264; TG 145; HDL 50; LDL 185 Encourage her to improve adherence to medication and lifestyle modification May need to change to Atorvastatin if her renal function declines. According to ACC/AHA guideline, high-intensity statin therapy is recommended. Assessment & Plan (11/27/2024 8:46 AM EDT): Current medication: Rosuvastatin 40 mg at bedtime Last lipid profile: 11/25/24 TC 224; TG 129; HDL 53; LDL 146 Encourage her to improve adherence to medication [...] is recommended. Hypertension 02/29/2012 Assessment & Plan (03/03/2025 11:23 AM EDT): -Goal BP < 130 per ACC/AHA guideline -BP at goal today -Continue working on lifestyle modification and medication adherence. -Continue lisinopril 20 mg daily. -Continue HCTZ 25 mg daily, advised to take half pill if systolic BP is less than 110. Due to her age, consider discontinuing in near future and titrate up ACEI. -consider a combination drug for decreasing pill-burden Assessment & Plan (11/25/2024 9:05 AM EDT): [...] problem arises Prediabetes 02/29/2012 Assessment & Plan (02/24/2025 9:35 AM EDT): - 08/18/24 A1C 5.7% Assessment & Plan (11/27/2024 8:47 AM EDT): - 08/18/24 A1C 5.7% Assessment & Plan (08/18/2024 12:16 PM EST): -06/06/23 A1C 5.8% Assessment & Plan (04/21/2024 6:04 AM EDT): -06/06/23 A1C 5.8% Assessment & Plan (08/12/2023 11:24 AM EST): -06/06/23 A1C 5.8% Migraine 02/29/2012 Osteoarthritis of knee 02/29/2012 Assessment & Plan (03/03/2025 11:15 AM EDT): Following with [facility], most recently seen on 02/06/2025 Has been receiving steroid injection periodically. Last treatment on 02/06/2025 Patient was offered TKA, but has been hesitant to proceed, and has not given an informed consent yet Continue judicious use of APAP and topical medications Assessment & Plan (08/18/2024 12:15 PM EST): [...] TKA Follow up as scheduled Seizure disorder ([facility]) 02/29/2012 Assessment & Plan (11/21/2022 12:29 PM EDT): Seizure-Free for Many years -Does not drive herself -Discontinued Depakote since it was originally started for Bipolar Disorder Resolved Problems Problem Noted Date Diagnosed Date Resolved Date Weight gain 12/18/2017 04/25/2023 04/21/2024 Cannabis abuse 06/17/2015 08/23/2022 Encounters Date Type Department Care Team Description 2025 10:15 AM EST Office Visit [address] [phone] Jackie Butler MD Dyslipidemia (Primary Dx); Primary hypertension; Prediabetes; Tobacco dependence; Throat discomfort; Weight loss; Screening for colon cancer; Encounter for immunization 2025 Travel 05/22/[address] [address] Jackie Butler MD chartprep 04/16/[address] Nutrition referral 04/14/[address] [address] Jackie Butler MD Out-going call (FD placed out-going due to receiving a referral for Avionics Supervisor with [employer]. Pt no show LVM, to call back to schedule new patient appointment for consult. ) 03/04/2025 Telephone [facility] [address] [place], [place] [phone] Jackie Butler MD 02/25/2025 Orders Only [address] [place], [place] [phone] Jackie Butler MD Dyslipidemia (Primary Dx) 02/25/2025 Results Follow-Up [address] [place] [address] Jackie Butler MD Lipid Panel with Reflex to Direct LDL, TSH with Reflex to Free T4, Comprehensive Metabolic Panel, CBC auto differential 02/24/2025 1:00 PM EDT Office Visit [facility] [address] [place] [address] Jackie Butler MD Primary hypertension (Primary Dx); Dyslipidemia; Prediabetes; Primary osteoarthritis of both knees; Asthma with COPD ([facility]/HCC); Tobacco dependence; Bilateral inguinal hernia without obstruction or gangrene, recurrence not specified; Impaired fasting glucose; Weight loss; Mixed stress and urge urinary incontinence; Smoking greater than 20 pack years 02/24/2025 Orders Only [facility] [address] [place] [address] Jackie Butler MD 02/24/2025 Travel 02/23/2025 Telephone [facility] [address] [place] [address] Jackie Butler MD chartprep from Last 3 Months Immunizations Immunization Administration Dates Next Due Hep A, Adult 08/18/2024,01/14/2024 Influenza High-dose Quadriva lent Preservative Free 06/06/2023,06/14/2020 Influenza injectable quadriv alent IIV4 with preservative 08/06/2017,06/17/2015 Influenza injectable quadriv alent preservative free 06/16/2021,09/30/2018 Influenza, High Dose Seasona l, Preservative Free 2025,08/18/2024,05/19/2019 Influenza, IIV3, injectable 04/16/2014, 1 Influenza, Split (incl. juan m fied surface antigen) 09/29/2013 Pneumococcal Conjugate PCV 13 08/06/2017 Pneumococcal [...] Mass Index 20.19 2025 10:29 AM EST Plan of Treatment Health Maintenance Due Date Last Done Comments CT Colonography 1950 Colonoscopy 1950 Colorectal Cancer Screening 1950 FIT DNA/Cologuard 1950 FIT 1950 FOBT 1950 Sigmoidoscopy 1950 Diabetes: Hemoglobin A1C 08/18/2025 025, 06/06/2023, 08/23/2022, Additional history exists SDOH Screening 08/18/2025 08/18/2024 Mammogram 11/01/2025 11/02/2023, 09/13, 09/27/2021, Additional history exists Depression Monitoring 11/22/2025 2025, 025 Alcohol/Substance Use Screening 11/25/2025 11/25/2024 COVID-19 Vaccine ( season) 2026 Postponed from 03/16/2025 (Patient Refused) Tobacco Screening 2026 2025 Lipid Panel 02/24/2030 02/24/2025, 11/13, 08/18/2024, Additional history exists DTaP/Tdap/Td Vaccines (3 - [...] to complete this topic Influenza Vaccine Completed 2025, , 06/06/2023, Additional history exists HIB Vaccines Aged Out [...] patient's age to complete this topic Meningococcal B Vaccine Aged Out No l onger eligible based on patient's age to complete this topic Meningococcal Vaccine Aged Out No godl tiana eligible based on patient's age to complete this topic RSV under 20 months Aged Out No longe r eligible based on patient's age to complete this topic Rotavirus Vaccines Aged Out No longer eligible based on patient's age to complete this topic Procedures Procedure Name Priority Date/Time Associated Diagnosis Comments T4, FREE Routine 02/24/2025 1:42 PM EDT CBC WITH AUTO DIFFERENTIAL Routine 02/24/2025 1:42 PM EDT Weight loss COMPREHENSIVE METABOLIC PANEL Routine 02/24/2025 1:42 PM EDT Weight loss TSH W/REFLEX TO FT4 Routine 02/24/2025 1 :42 PM EDT Weight loss LIPID PANEL WITH REFLEX TO DIRECT LDL Routine 02/24/2025 1:42 PM EDT Dyslipidemia HEMOGLOBIN A1C Routine 08/18/2024 12:38 PM EST Prediabetes BI MAMMOGRAM SCREENING TOMOSYNTHESIS BILATERAL Routine 11/02/2023 3:20 PM EDT HEPATITIS C AB W/REFL TO HCV RNA, QN, PCR Routine 10/23/2023 10:12 AM EDT Sarcoidosis from Last 3 Months or Most Recently Relevant to Health Maintenance Results * (ABNORMAL) TSH with Reflex to Free T4 (02/24/2025 1:42 PM EDT) TSH reflex Free T4 0.31(L) 0.32 - 4.0 uIU/mL [facility] Blood 02/24/2025 1:42 PM EDT 02/24/2025 5:40 PM EDT Jackie Butler MD LAB BLOOD ORDERABLES Final Resul t Performing Organization Address [facility] de Phone Number [facility] [address] [place] [phone] * (ABNORMAL) Lipid Panel with Reflex to Direct LDL (02/24/2025 1:42 PM EDT) Triglycerides 145 <150 mg/dL [facility] Comment:Desirable Triglyceri de: less than 150 mg/dLBorderline High Triglyceride 150-199 mg/dLHigh Triglyceride: 200-499 mg/dLVery High Triglyceride: greater than or equal to 5OO mg/dL Cholesterol 264(H) <200 mg/dL [facility] Comment:Desirable Cholestero l: less than 200 mg/dLBorderline High Cholesterol: 200-239 mg/dLHigh Cholesterol: greater than 239 mg/dL LDL Cholesterol Calculated 185(H) <100 mg/dL [facility] Comment:Desirable LDL: less than 100 mg/dLNear Optimal/Above Optimal LDL: 110- 129 mg/dLBorderline High LDL: 130-159 mg/dLHigh LDL: 160-189 mg/dLVery High LDL: greater than or equal to 190 mg/dL HDL Cholesterol 50 >40 mg/dL [facility] Comment:Desirable HDL: great er than 40 mg/dL Note: This HDL assay may give artificially low results in patients with liver disease. Blood 02/24/2025 1:42 PM EDT 02/24/2025 5:40 PM EDT us Jackie Butler MD LAB BLOOD ORDERABLES Final Resul t Performing Organization Address [facility] Co de Phone Number [facility] [address] [place] [phone] * (ABNORMAL) CBC auto differential (02/24/2025 1:42 PM EDT) White Blood Count 5.6 4.8 - 10.8 X10*3/uL [facility] Red Blood Count 3.78(L) 4.20 - 5.50 X10*6/uL [facility] Hemoglobin 11.9(L) 12.0 - 16.0 g/dl [facility] Hematocrit 34.8(L) 37.0 - 47.0 % [facility] Mean Corpuscular Volume 92.1 80.0 - 98.0 fL [facility] Mean Corpuscular Hemoglobin 31.5 27.0 - 33.0 pg [facility] Mean Corpuscular HGB Conc 34.2 31.0 - 35.0 g/dl [facility] Red Cell Distribution Width 14.6 11.0 - 16.0 % [facility] Platelet Count 357 160 - 400 X10*3/uL [facility] Mean Platelet Volume 9.6 9.4 - 12.3 fL [facility] Neutrophils Percent Auto 54.2 45 - 73 % [facility] Imm Gran Pct Auto 0.4 0.0 - 0.4 % [facility] Lymphocytes Percent Auto 37.4 20 - 40 % [facility] Monocytes Percent Auto 5.7 2 - 11 % [facility] Eosinophils Percent Auto 1.8 0 - 4 % [facility] Basophils Percent Auto 0.5 0 - 2 % [facility] NRBC Pct Auto 0.0 0.0 - 0.2 /100WBC [facility] Neutrophils Absolute Auto 3.1 2.0 - 8.3 x10*3/uL [facility] Imm Gran Abs Auto 0.02 0.00 - 0.03 X10*3/uL [facility] Lymphocytes Absolute Auto 2.1 1.2 - 4.9 X10*3/uL [facility] Monocytes Absolute Auto 0.3 0.1 - 1.2 X10*3/uL [facility] Eosinophils Absolute Auto 0.1 0.0 - 0.4 X10*3/uL [facility] Basophils Absolute Auto 0.0 0.0 - 0.2 X10*3/uL [facility] NRBC Abs Auto 0.000 0.0 - 0.012 X10*3/uL [facility] Blood Venous blood specimen / Unknown 02/24/2025 1:42 PM EDT 02/24/2025 5:45 PM EDT Jackie Butler MD LAB BLOOD ORDERABLES Final Resul t Performing Organization Address [facility] Co de Phone Number [facility] [address] [place] [phone] * T4, Free (02/24/2025 1:42 PM EDT) Free T4 (Free Thyroxine) 1.11 0.71 - 1.85 ng/dL [facility] 02/24/2025 1:42 PM EDT 02/24/2025 5:40 PM EDT Jackie Butler MD LAB BLOOD ORDERABLES Final Resul t Performing Organization Address [facility] de Phone Number [facility] [address] [place] [phone] * Comprehensive Metabolic Panel (02/24/2025 1:42 PM EDT) Sodium 138 135 - 145 mmol/L [facility] Potassium 3.5 3.3 - 5.1 mmol/L [facility] Chloride 103 96 - 108 mmol/L [facility] Carbon Dioxide 27 22 - 29 mmol/L [facility] Anion Gap 12 12 - 20 [facility] Urea Nitrogen (BUN) 10 9 - 16 mg/dL [facility] Creatinine, Serum 0.91 0.5 - 1.4 mg/dL [facility] Estimated Glomerular Filt Rate >60 [facility] Comment:Chronic Kidney Disea se: Estimated GFR < 60 mL/min/[id number] Kidney Disease: Estimated GFR < 15 mL/min/1.73m2 Glucose 71 60 - 115 mg/dL [facility] Calcium 9.6 8.4 - 10.2 mg/dL [facility] Bilirubin, Total 0.3 0.0 - 1.0 mg/dL [facility] Aspartate Amino Transferase 23 5 - 31 U/L [facility] Alanine Aminotransferase 13 0 - 31 U/L [facility] Total Protein 6.5 6.5 - 8.0 g/dL [facility] Albumin Level 4.3 3.5 - 5.0 g/dL [facility] Alkaline Phosphatase 61 39 - 117 U/L [facility] Blood Venous blood specimen / Unknown 02/24/2025 1:42 PM EDT 02/24/2025 5:40 PM EDT Jackie Butler MD LAB BLOOD ORDERABLES Final Resul t [facility] [address] [place] [phone] * Hemoglobin A1c (08/18/2024 12:38 PM EST) Hemoglobin A1c 5.7 <6.0 % [facility] Comment:Hemoglobin A1C Refer ence Range Adults: 4.8 - 6.0 % Non diabetic: < 6.0 % Goal: < 7.0 %Additional Action Suggested: > 8.0 %Note: Hemoglobin A1c results are invalid for patients with abnormal amounts of HbF. Blood transfusions may impact the HbA1c concentration in the patient sample. Estimated Average Glucose 117 mg/dL [facility] Comment:eAG = Estimated ave rage glucose which is %A1C expressed asaverage glucose, using the formula of the [id number]-[id number] Glucose study (ADAG), Diabetes Care, Vol.31,#8,Feb. 2007 Blood Venous blood specimen / Unknown 08/18/2024 12:38 PM EST 08/18/2024 1:19 PM EST us Jackie Sakurai MD LAB BLOOD ORDERABLES Final Resul t [facility] [address] [place] [address] [phone] * BI Mammogram Screening Tomosynthesis Bilateral (11/02/2023 3:20 PM EDT) Anatomical Region Laterality Modality Breast Bilateral Mammography 11/02/2023 3:20 PM EDT Narrative 12/03/2023 4:12 AM EDT [facility] [address] [place] [address] Mammography Report Signed Patient: Earline Mcduffie MR#: [id number] : 1950 Acct:[id number] Age/Sex: 73 / F ADM Date: 11/02/23 Loc: .MAMMO Attending Dr: Jackie Butler MD Ordering Physician: Jackie Butler MD Results: 1Negative Date of Service: 11/02/23 Follow Up: 1 Year From [facility] Mammogram Procedure(s): MM tomosynthesis screening BI Accession Number(s): [id number] cc: Jackie Butler MD EXAMINATION: MM SCREENING [...] signed by Kimber Smith MD in [place]> 12/03/23407 DD/ 1520 TD/TT: Medical Technologist: Procedure Note Donotuseinterpreter, Image - 12/03/2023 [facility] [address] [place] [address] Mammography Report Signed Patient: Earline Mcduffie TMR#: [id number] : [id number] Age/Sex: 73 / FADM Date: 11/02/23 Loc: HO.MAMMO Attending Dr: Jackie Butler MD Ordering Physician: Jackie Butler MDResults: 1Negative Date of Service: 11/02/23Follow Up: 1 Year From Orig inal Mammogram Procedure(s): MM tomosynthesis screening BI Accession Number(s): [id number] cc: Jackie Butler MD EXAMINATION: MM SCREENING [...] signed by Kimber Smith MD in OV> 12/03/23407 DD/ 1520 TD/TT: Medical Technologist: Jackie Butler MD IMG BI PROCEDURES Edited Result - Final * Hepatitis C Antibody with Reflex to HCV, RNA, Quantitative, Real-Time PCR (10/23/2023 10:12 AM EDT) Hepatitis C Antibody Nonreactive Nonreactive [facility] Comment:Antibodies to HCV no t detected; does not exclude early acuteHCV infection. Blood Venous blood specimen / Unknown 10/23/2023 10:12 AM EDT 10/23/2023 11:20 AM EDT Jackie Butler MD LAB BLOOD ORDERABLES Final Resul t [facility] [address] [place] [address] [phone] from Last 3 Months or Most Recently Relevant to Health Maintenance Insurance [id number] Care Teams [employer] Relationship Specialty Start Date End Date Jackie Butler MD [address] [place] [phone] PCP - General Family Medicine 07/16/18
[2025-05-25 13:25] LABS: MANUAL DIFF FLAG NO
[2025-05-25 13:33] LABS: Hematocrit 33.3 % (37.0-47.0); Hemoglobin 11.1 g/dl (12.0-16.0); Imm Gran Abs Auto 0.02 X10*3/uL (0.00-0.03); Imm Gran Pct Auto 0.3 % (0.0-0.4); Lymphocytes Absolute Auto 2.5 X10*3/uL (1.2-4.9); Mean Corpuscular HGB Conc 33.3 g/dl (31.0-35.0); Mean Corpuscular Hemoglobin 30.7 pg (27.0-33.0); Mean Corpuscular Volume 92.0 fL (80.0-98.0); NRBC Abs Auto 0.000 X10*3/uL (0.0-0.012); NRBC Pct Auto 0.0 /100WBC (0.0-0.2); Platelet Count 363 X10*3/uL (160-400); Red Blood Count 3.62 X10*6/uL (4.20-5.50); White Blood Count 6.4 X10*3/uL (4.8-10.8)
[2025-05-25 14:16] LABS: Alanine Aminotransferase 10 U/L (0-31); Albumin Level 3.9 g/dL (3.5-5.0); Alkaline Phosphatase 49 U/L (39-117); Anion Gap 8 (12-20); Aspartate Amino Transferase 23 U/L (5-31); Blood Urea Nitrogen 12 mg/dL (9-16); Calcium 9.7 mg/dL (8.4-10.2); Carbon Dioxide 26 mmol/L (22-29); Chloride 108 mmol/L (96-108); Cholesterol 185 mg/dL (<200); Estimated Glomerular Filt Rate 59; HDL Cholesterol 58 mg/dL (>40); Potassium 3.9 mmol/L (3.3-5.1); Sodium 138 mmol/L (135-145); Total Protein 6.0 g/dL (6.5-8.0); Triglycerides 62 mg/dL (<150)
[2025-05-25 14:45] LABS: Reflex LDLD? No
== END 2025-05-25 11:03 | disposition home or self-care (01) ==
LOC: HO.HHCL 11:02
PROVIDERS: PCP Family Medicine; Visit Provider Family Medicine
DX: R63.4 Abnormal weight loss (principal); E78.5 Hyperlipidemia, unspecified
CPT/HCPCS: 36415; 80053; 80061; 84443; 85025